=== PATIENT | male | born 1930 | race Caucasian/White ===

== ENCOUNTER 2021-06-01 07:24 | Inpatient (IN) ==
--- NOTE | 2021-06-01 07:47 | Emergency Department Note ---
Impression & Plan Respiratory failure, Hypoxia, Pneumonia ED Provider Note NAME: DIMITRI DAUGHERTY AGE: 89 SEX: M : 1930 ARRIVES VIA: Ambulance INFORMANT: Patient, EMS ED PROVIDER(S): Jesse Mccurdy DO CHIEF COMPLAINT: Shortness of breath HPI: The patient is an 89-year-old male who presented to the emergency department from inpatient rehab for an evaluation of difficulty breathing. The patient has never been to our facility before. He is a former employee of [employer]. He does have a history of pulmonary fibrosis according to his documentation from inpatient rehab. Apparently the patient was transferred to inpatient rehab because of decompensation and myopathy from pneumonia from COVID-19 infection. The patient does have a history of atrial fibrillation and takes oral anticoagulation. He also has a history of an indwelling Ewing. He has a history of stroke in the past. The patient was noted to have low-grade fever as well as hemoptysis this morning. Reported oxygen saturation was very low in the 70% range. The patient self complains of significant shortness of breath. He denies having any chest pain. He states he does have lower extremity swelling but this not new for him. He has had some back pain. He denies having any abdominal pain or vomiting. The patient states his symptoms are significantly improved. He was placed on a nonrebreather prior to arrival. The patient's symptoms were moderate to severe. ROS: See above HPI for pertinent positives & negatives. A total of 10 systems reviewed and were otherwise negative. PAST MEDICAL HISTORY: See Below PAST SURGICAL HISTORY: See Below FAMILY HISTORY: See Below SOCIAL HISTORY: See Below HOME MEDICATIONS: See Below ALLERGIES: See Below VITALS: See Below PHYSICAL EXAMINATION: GENERAL: The patient is awake and looking around the room. He is answering questions appropriately. EYES: The conjunctivae are clear. The pupils are round and reactive. EARS, NOSE, MOUTH AND THROAT: The nose is without any evidence of any deformity. NECK: The neck is nontender and supple. RESPIRATORY: Diminished breath sounds are noted throughout. There was significant tachypnea and conversational dyspnea. CARDIOVASCULAR: Irregular heart sounds were noted to auscultation. A loud murmur was noted. This was a questionable friction rub but given the patient's history likely murmur. GASTROINTESTINAL: The abdomen is soft. Abdomen is nontender. Ewing catheter was in place draining gross hematuria. MUSCULOSKELETAL/EXTREMITIES: There is no evidence of gross deformity full range of motion is noted in the hips and shoulders. SKIN: Skin is warm and dry. Pedal edema was noted bilaterally. NEUROLOGIC: Patient is awake alert and oriented x3. MEDICAL DECISION MAKING: The patient is an 89-year-old male who presented to the emergency department from inpatient rehab for an evaluation of difficulty breathing. The patient was experiencing hemoptysis and difficulty breathing. He was found to be severely hypoxic. Chest x-ray revealed bilateral pulmonary infiltrates. Given his heart size this could be related to infection rather than pulmonary edema. I discussed the patient's laboratory and radiographic studies with him. He was cultured and placed on supplemental oxygen. He was also placed on IV antibiotics. He was reevaluated multiple times. The patient did not show have some CO2 retention. I discussed his condition with the on-call [facility]. They have agreed to evaluate the patient in the emergency department for further management and disposition. Triage Nursing notes reviewed. Prior medical records reviewed Vital Signs: reviewed and remarkable for tachycardia hypoxia and tachypnea. Differential diagnosis: Reactive airway disease, pneumonia, pneumothorax, COPD, CHF, infections, cardiac ischemia, pulmonary embolism, musculoskeletal, gastrointestinal, as well as other pathologies. ER treatment provided: See below Diagnostics interpreted by me: ECG: EKG was obtained in the emergency department. My interpretation is atrial fibrillation at 110 bpm. LVH was suggested by voltage criteria. Nonspecific lateral ST segment abnormalities were noted. No previous tracing was available. Cardiac Monitoring: An order was placed for continuous cardiac monitoring. The monitor shows a rate of 124 bpm with atrial fibrillation rhythm. Laboratory studies: As stated above and show below. Imaging studies: See below Consultation(s): I discussed this case with Birgit who is on-call for the [facility]. They will evaluate the patient in the emergency department. ED COURSE: Procedures: none PDMP:reviewed and no issues Critical Care: I have personally spent greater than 45 minutes of critical care time in the direct management of this patient. This includes bedside care, interpretation of diagnostic studies, and testing, discussion with consultants, patient, and family members, and other required patient management activities. This 45 mi nutes is in excess of all separately billable procedures. Past Med/Surg History Medical History (Updated 06/01/21 @ 14:53 by Elvie Simms PA-C) Aortic stenosis Atrial fibrillation Diagnosed in Jul 2020 - was on Eliquis initially but recently changed to Xarelto Carotid stenosis Coronary artery disease 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 Former smoker Hyperlipidemia Hypertension Indwelling Ewing catheter present Pneumonia due to COVID-19 virus Required intubation 05/18-05/20/21 Pulmonary fibrosis Urinary retention Surgical History History of aortic valve replacement Social History (Updated 06/01/21 @ 11:09 by Elvie Simms PA-C) Smoking Status: Former smoker Cigarettes Per Day: 2 PPD until quit in 1998; Smoking End Date: 1998; Second Hand Exposure: No; Do You Dip or Chew Tobacco: No; Tobacco Cessation Education Requested by Patient: No Hx Alcohol Use: No Hx Substance Use: No Preferred Language: Japanese Communication Ability: Effective Clerical Assistant Required: No Beliefs That Will Affect Care: None marital status: Current Living Situation: Personal Care Facility Current Living Situation Comment: daughter nearby who helps with care needs current occupational status: retired 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 Other Information That Helps Us Care for You: No Feels Safe at Home: Yes Safety Concerns: Feels Safe At This Time Assistive Devices: None Allergies Allergies Allergy/AdvReac Type Severity Reaction Status Date / Time No Known Allergies Allergy Unverified 06/01/21 09:07 Home Meds Home Medications Medication Instructions Recorded Confirmed Milk of Magnesia 2.4 g PO DAILY PRN 06/01/21 06/01/21 Potassium Phosphate Sodium 1 packet PO TID 06/01/21 06/01/21 Phosphate Zinc Sulfate 220mg 220 mg PO DAILY 06/01/21 06/01/21 acetaminophen 650 mg 650 mg PO Q4H PRN 06/01/21 06/01/21 tablet,extended release ascorbic acid (vitamin C) 500 mg 500 mg PO DAILY 06/01/21 06/01/21 tablet aspirin 81 mg capsule 81 mg PO DAILY 06/01/21 06/01/21 atorvastatin 10 mg tablet 10 mg PO HS 06/01/21 06/01/21 bisacodyl 10 mg rectal suppository 10 mg TN DAILY PRN 06/01/21 06/01/21 brimonidine 0.2 % eye drops 1 drp OPB Q12H 06/01/21 06/01/21 cholecalciferol (vitamin D3) 25 25 mcg PO DAILY 06/01/21 06/01/21 mcg (1,000 unit) tablet docusate sodium 100 mg capsule 100 mg PO BID 06/01/21 06/01/21 (Colace) fluticasone furoate 100 1 inh INHALATION DAILY 06/01/21 06/01/21 mcg/actuation blister powder for inhalation fluticasone propionate 50 1 spray INTRANASAL DAILY 06/01/21 06/01/21 mcg/actuation nasal spray,suspension furosemide 20 mg tablet 20 mg PO DAILY 06/01/21 06/01/21 latanoprost 0.005 % eye drops 1 drp OPB PM 06/01/21 06/01/21 lidocaine 5 % topical patch 2 patch TOPICAL QAM 06/01/21 06/01/21 loratadine 10 mg tablet 10 mg PO DAILY 06/01/21 06/01/21 metoprolol tartrate 25 mg tablet 75 mg PO DAILY 06/01/21 06/01/21 omega-3 fatty acids 1,000 mg 1,000 mg PO DAILY 06/01/21 06/01/21 capsule pantoprazole 20 mg tablet,delayed 20 mg PO DAILYBB 06/01/21 06/01/21 release polyethylene glycol 3350 17 17 g PO QDL PRN 06/01/21 06/01/21 gram/dose oral powder (Miralax) rivaroxaban 20 mg tablet 20 mg PO QDD 06/01/21 06/01/21 sacubitril 24 mg-valsartan 26 mg 1 tab PO BID 06/01/21 06/01/21 tablet (Entresto) sennosides 8.6 mg-docusate sodium 1 tab-cap PO QDL PRN 06/01/21 06/01/21 50 mg tablet (Senokot-S) tamsulosin 0.4 mg capsule 0.4 mg PO HS 06/01/21 06/01/21 timolol 0.5 % eye drops 1 drp OPB BID 06/01/21 06/01/21 Results & Data (ED) Vital Signs Vital Signs - 24 hr 06/01/21 07:35 06/01/21 08:00 06/01/21 08:30 Temperature 36.9 C Temperature Source Oral Pulse Rate 120 H 100 H 92 H Pulse Rate [Apical] 79 Pulse Rate from SpO2 Sensor 88 76 81 Respiratory Rate 23 19 27 H Respiratory Effort / Characteristics Spontaneous Labored Respiratory Depth Normal Respiratory Pattern Regular Blood Pressure 115/65 118/78 Blood Pressure [Right Arm] 115/65 Blood Pressure Mean 81 91 Blood Pressure Mean [Right Arm] 81 Pulse Oximetry 90 90 93 Oxygen Delivery Method Non-rebreather Non-rebreather Non-rebreather Oxygen Flow Rate 15 15 15 Sepsis Recent Fever Within 48 Hours No Sepsis New/Unexplained Change in Mental Status No Sepsis Action Taken by Nursing No Action Required 06/01/21 09:00 06/01/21 09:30 06/01/21 10:00 Temperature Temperature Source Pulse Rate 100 H 104 H 91 H Pulse Rate [Apical] Pulse Rate from SpO2 Sensor 106 H 88 82 Respiratory Rate 31 H 30 H 30 H Respiratory Effort / Characteristics Respiratory Depth Respiratory Pattern Blood Pressure 101/50 L Blood Pressure [Right Arm] Blood Pressure Mean 67 Blood Pressure Mean [Right Arm] Pulse Oximetry 94 96 95 Oxygen Delivery Method Non-rebreather Non-rebreather Non-rebreather Oxygen Flow Rate 15 15 15 Sepsis Recent Fever Within 48 Hours Sepsis New/Unexplained Change in Mental Status Sepsis Action Taken by Nursing 06/01/21 10:30 06/01/21 12:02 Temperature Temperature Source Pulse Rate 76 Pulse Rate [Apical] Pulse Rate from SpO2 Sensor 74 Respiratory Rate 20 22 Respiratory Effort / Characteristics Respiratory Depth Respiratory Pattern Blood Pressure 105/61 Blood Pressure [Right Arm] Blood Pressure Mean 75 Blood Pressure Mean [Right Arm] Pulse Oximetry 98 95 Oxygen Delivery Method Non-rebreather Non-rebreather Oxygen Flow Rate 15 15 Sepsis Recent Fever Within 48 Hours Sepsis New/Unexplained Change in Mental Status Sepsis Action Taken by [facility] Medications Current Medication List: was personally reviewed by me Laboratory Data Attestation: I reviewed the patient's lab results. Result diagrams: 06/01/21 07:38 06/01/21 07:38 Lab Results 06/01/21 06/01/21 06/01/21 Range/Units 07:38 07:38 07:38 WBC 10.10 (4.8-10.8) K/uL RBC 3.74 L (4.7-6.1) M/uL Hgb 10.7 L (14.0-18.0) g/dL Hct 31.7 L (42-52) % MCV 84.8 (80-100) fL MCH 28.6 (25-34) pg MCHC 33.8 (32-36) g/dL RDW Std Deviation 43.9 (36.4-46.3) fL RDW Coeff of Ronda 14.3 (11.5-14.5) % Plt Count 293 (130-400) K/uL MPV 9.9 (7.4-10.4) fL Immature Gran % (Auto) 0.4 % Neut % (Auto) 87.3 % Lymph % (Auto) 5.2 % Harris % (Auto) 5.6 % Eos % (Auto) 1.4 % Baso % (Auto) 0.1 % Neut # (Auto) 8.81 H (1.4-6.5) K/uL Lymph # (Auto) 0.53 L (1.2-3.4) K/uL Harris # (Auto) 0.57 (0.11-0.59) K/uL Eos # (Auto) 0.14 (0-0.5) K/uL Baso # (Auto) 0.01 (0-0.2) K/uL Immature Gran # (Auto) 0.04 H (0.00-0.02) K/uL PT 13.4 H (9.0-12.0) Seconds INR 1.4 H (0.9-1.1) APTT 39.6 H (21.0-31.0) Seconds PTT Ratio 1.5 VBG pH (7.36-7.41) VBG pCO2 (38-50) mmHg VBG pO2 mmHg VBG HCO3 mmol/L VBG O2 Saturation % VBG Base Excess mEq/L Barometric Pressure mm/Hg Sodium 131 L (136-145) mmol/L Potassium 3.8 (3.5-5.1) mmol/L Chloride 98 (98-107) mmol/L Carbon Dioxide 26 (21-32) mmol/L Anion Gap 7.0 (3-11) BUN 19 H (7-18) mg/dl Creatinine 0.76 (0.6-1.4) mg/dl Est Cr Clr Drug Dosing 59.8 ml/min Est GFR ( Amer) 93.8 ml/min Est GFR (Non-Af Amer) 80.9 ml/min BUN/Creatinine Ratio 25.4 H (10-20) Glucose 121 H (70-99) mg/dl Lactate (0.4-2.0) mmol/L Calcium 9.5 (8.5-10.1) mg/dl Magnesium 1.9 (1.8-2.4) mg/dl Ferritin (8-388) ng/ml Total Bilirubin 1.1 H (0.2-1) mg/dl AST 20 (15-37) U/L ALT 18 (12-78) U/L Alkaline Phosphatase 90 (45-117) U/L Troponin I < 0.015 (0-0.045) ng/ml C-Reactive Protein (0-0.29) mg/dl NT-Pro-B Natriuret Pep 1713 (0-1800) pg/ml Total Protein 6.4 (6.4-8.2) gm/dl Albumin 2.0 L (3.4-5.0) gm/dl Globulin 4.4 H (2.5-4.0) gm/dl Albumin/Globulin Ratio 0.5 L (0.9-2) Procalcitonin (0-0.5) ng/ml Urine Color Urine Appearance (Clear) Urine pH (4.5-7.5) Ur Specific [place] (1.000-1.030) Urine Protein (Negative) Urine Glucose (UA) (Negative) Urine Ketones (Negative) Urine Blood (Negative) Urine Nitrite (Negative) Urine Bilirubin (Negative) Urine Urobilinogen (Negative) Ur Leukocyte Esterase (Negative) Urine RBC (0-4) /hpf Urine WBC (0-5) /hpf Ur Epithelial Cells (0-5) /lpf Urine Bacteria (Negative) COVID-19 Eval Order SARS-CoV-2 (PCR) (Negative) 06/01/21 06/01/21 06/01/21 Range/Units 07:38 07:38 07:57 WBC (4.8-10.8) K/uL RBC (4.7-6.1) M/uL Hgb (14.0-18.0) g/dL Hct (42-52) % MCV (80-100) fL MCH (25-34) pg MCHC (32-36) g/dL RDW Std Deviation (36.4-46.3) fL RDW Coeff of Ronda (11.5-14.5) % Plt Count (130-400) K/uL MPV (7.4-10.4) fL Immature Gran % (Auto) % Neut % (Auto) % Lymph % (Auto) % Harris % (Auto) % Eos % (Auto) % Baso % (Auto) % Neut # (Auto) (1.4-6.5) K/uL Lymph # (Auto) (1.2-3.4) K/uL Harris # (Auto) (0.11-0.59) K/uL Eos # (Auto) (0-0.5) K/uL Baso # (Auto) (0-0.2) K/uL Immature Gran # (Auto) (0.00-0.02) K/uL PT (9.0-12.0) Seconds INR (0.9-1.1) APTT (21.0-31.0) Seconds PTT Ratio VBG pH (7.36-7.41) VBG pCO2 (38-50) mmHg VBG pO2 mmHg VBG HCO3 mmol/L VBG O2 Saturation % VBG Base Excess mEq/L Barometric Pressure mm/Hg Sodium (136-145) mmol/L Potassium (3.5-5.1) mmol/L Chloride (98-107) mmol/L Carbon Dioxide (21-32) mmol/L Anion Gap (3-11) BUN (7-18) mg/dl Creatinine (0.6-1.4) mg/dl Est Cr Clr Drug Dosing ml/min Est GFR ( Amer) ml/min Est GFR (Non-Af Amer) ml/min BUN/Creatinine Ratio (10-20) Glucose (70-99) mg/dl Lactate (0.4-2.0) mmol/L Calcium (8.5-10.1) mg/dl Magnesium (1.8-2.4) mg/dl Ferritin 934.7 H (8-388) ng/ml Total Bilirubin (0.2-1) mg/dl AST (15-37) U/L ALT (12-78) U/L Alkaline Phosphatase (45-117) U/L Troponin I (0-0.045) ng/ml C-Reactive Protein 14.30 H (0-0.29) mg/dl NT-Pro-B Natriuret Pep (0-1800) pg/ml Total Protein (6.4-8.2) gm/dl Albumin (3.4-5.0) gm/dl Globulin (2.5-4.0) gm/dl Albumin/Globulin Ratio (0.9-2) Procalcitonin 0.08 (0-0.5) ng/ml Urine Color Urine Appearance (Clear) Urine pH (4.5-7.5) Ur Specific [place] (1.000-1.030) Urine Protein (Negative) Urine Glucose (UA) (Negative) Urine Ketones (Negative) Urine Blood (Negative) Urine Nitrite (Negative) Urine Bilirubin (Negative) Urine Urobilinogen (Negative) Ur Leukocyte Esterase (Negative) Urine RBC (0-4) /hpf Urine WBC (0-5) /hpf Ur Epithelial Cells (0-5) /lpf Urine Bacteria (Negative) COVID-19 Eval Order Covid19 at [facility] SARS-CoV-2 (PCR) (Negative) 06/01/21 06/01/21 06/01/21 Range/Units 07:57 08:17 08:17 WBC (4.8-10.8) K/uL RBC (4.7-6.1) M/uL Hgb (14.0-18.0) g/dL Hct (42-52) % MCV (80-100) fL MCH (25-34) pg MCHC (32-36) g/dL RDW Std Deviation (36.4-46.3) fL RDW Coeff of Ronda (11.5-14.5) % Plt Count (130-400) K/uL MPV (7.4-10.4) fL Immature Gran % (Auto) % Neut % (Auto) % Lymph % (Auto) % Harris % (Auto) % Eos % (Auto) % Baso % (Auto) % Neut # (Auto) (1.4-6.5) K/uL Lymph # (Auto) (1.2-3.4) K/uL Harris # (Auto) (0.11-0.59) K/uL Eos # (Auto) (0-0.5) K/uL Baso # (Auto) (0-0.2) K/uL Immature Gran # (Auto) (0.00-0.02) K/uL PT (9.0-12.0) Seconds INR (0.9-1.1) APTT (21.0-31.0) Seconds PTT Ratio VBG pH 7.45 H (7.36-7.41) VBG pCO2 37 L (38-50) mmHg VBG pO2 30 mmHg VBG HCO3 25 mmol/L VBG O2 Saturation < 60.0 % VBG Base Excess 1.6 mEq/L Barometric Pressure 731.3 mm/Hg Sodium (136-145) mmol/L Potassium (3.5-5.1) mmol/L Chloride (98-107) mmol/L Carbon Dioxide (21-32) mmol/L Anion Gap (3-11) BUN (7-18) mg/dl Creatinine (0.6-1.4) mg/dl Est Cr Clr Drug Dosing ml/min Est GFR ( Amer) ml/min Est GFR (Non-Af Amer) ml/min BUN/Creatinine Ratio (10-20) Glucose (70-99) mg/dl Lactate 1.5 (0.4-2.0) mmol/L Calcium (8.5-10.1) mg/dl Magnesium (1.8-2.4) mg/dl Ferritin (8-388) ng/ml Total Bilirubin (0.2-1) mg/dl AST (15-37) U/L ALT (12-78) U/L Alkaline Phosphatase (45-117) U/L Troponin I (0-0.045) ng/ml C-Reactive Protein (0-0.29) mg/dl NT-Pro-B Natriuret Pep (0-1800) pg/ml Total Protein (6.4-8.2) gm/dl Albumin (3.4-5.0) gm/dl Globulin (2.5-4.0) gm/dl Albumin/Globulin Ratio (0.9-2) Procalcitonin (0-0.5) ng/ml Urine Color Urine Appearance (Clear) Urine pH (4.5-7.5) Ur Specific [place] (1.000-1.030) Urine Protein (Negative) Urine Glucose (UA) (Negative) Urine Ketones (Negative) Urine Blood (Negative) Urine Nitrite (Negative) Urine Bilirubin (Negative) Urine Urobilinogen (Negative) Ur Leukocyte Esterase (Negative) Urine RBC (0-4) /hpf Urine WBC (0-5) /hpf Ur Epithelial Cells (0-5) /lpf Urine Bacteria (Negative) COVID-19 Eval Order SARS-CoV-2 (PCR) POSITIVE A* (Negative) 06/01/21 Range/Units 09:36 WBC (4.8-10.8) K/uL RBC (4.7-6.1) M/uL Hgb (14.0-18.0) g/dL Hct (42-52) % MCV (80-100) fL MCH (25-34) pg MCHC (32-36) g/dL RDW Std Deviation (36.4-46.3) fL RDW Coeff of Ronda (11.5-14.5) % Plt Count (130-400) K/uL MPV (7.4-10.4) fL Immature Gran % (Auto) % Neut % (Auto) % Lymph % (Auto) % Harris % (Auto) % Eos % (Auto) % Baso % (Auto) % Neut # (Auto) (1.4-6.5) K/uL Lymph # (Auto) (1.2-3.4) K/uL Harris # (Auto) (0.11-0.59) K/uL Eos # (Auto) (0-0.5) K/uL Baso # (Auto) (0-0.2) K/uL Immature Gran # (Auto) (0.00-0.02) K/uL PT (9.0-12.0) Seconds INR (0.9-1.1) APTT (21.0-31.0) Seconds PTT Ratio VBG pH (7.36-7.41) VBG pCO2 (38-50) mmHg VBG pO2 mmHg VBG HCO3 mmol/L VBG O2 Saturation % VBG Base Excess mEq/L Barometric Pressure mm/Hg Sodium (136-145) mmol/L Potassium (3.5-5.1) mmol/L Chloride (98-107) mmol/L Carbon Dioxide (21-32) mmol/L Anion Gap (3-11) BUN (7-18) mg/dl Creatinine (0.6-1.4) mg/dl Est Cr Clr Drug Dosing ml/min Est GFR ( Amer) ml/min Est GFR (Non-Af Amer) ml/min BUN/Creatinine Ratio (10-20) Glucose (70-99) mg/dl Lactate (0.4-2.0) mmol/L Calcium (8.5-10.1) mg/dl Magnesium (1.8-2.4) mg/dl Ferritin (8-388) ng/ml Total Bilirubin (0.2-1) mg/dl AST (15-37) U/L ALT (12-78) U/L Alkaline Phosphatase (45-117) U/L Troponin I (0-0.045) ng/ml C-Reactive Protein (0-0.29) mg/dl NT-Pro-B Natriuret Pep (0-1800) pg/ml Total Protein (6.4-8.2) gm/dl Albumin (3.4-5.0) gm/dl Globulin (2.5-4.0) gm/dl Albumin/Globulin Ratio (0.9-2) Procalcitonin (0-0.5) ng/ml Urine Color Red Urine Appearance Cloudy A (Clear) Urine pH 5.5 (4.5-7.5) Ur Specific [place] 1.020 (1.000-1.030) Urine Protein 3+ H (Negative) Urine Glucose (UA) Negative (Negative) Urine Ketones Negative (Negative) Urine Blood 3+ H (Negative) Urine Nitrite Negative (Negative) Urine Bilirubin 1+ H (Negative) Urine Urobilinogen Negative (Negative) Ur Leukocyte Esterase Negative (Negative) Urine RBC >30 H (0-4) /hpf Urine WBC 10-30 H (0-5) /hpf Ur Epithelial Cells 5-10 H (0-5) /lpf Urine Bacteria 1+ H (Negative) COVID-19 Eval Order SARS-CoV-2 (PCR) (Negative) Administered Medications Atorvastatin Calcium (Atorvastatin 10 Mg Tab) 10 mg PO HS JUDY Stop: 07/01/21 20:59 Last Admin: 06/01/21 20:12 Dose: 10 mg Documented by: [id number] Brimonidine Tartrate (Brimonidine Tartrate 0.2% 5ml) 1 drops OPB Q12H JUDY Stop: 07/01/21 20:59 Last Admin: 06/01/21 20:14 Dose: 1 drops Documented by: [id number] Dexamethasone 6 mg/ Syringe 1.5 mls @ 1 mls/min IV DAILY JUDY Stop: 07/01/21 15:29 Last Admin: 06/01/21 16:20 Dose: 1 mls/min Documented by: [id number] Latanoprost (Latanoprost 0.005% Op Soln 2.5 Ml Btl) 1 drops OPB PM JUDY Stop: 07/01/21 20:59 Last Admin: 06/01/21 20:14 Dose: 1 drops Documented by: [id number] Rivaroxaban (Rivaroxaban 20 Mg Tab) 20 mg PO QDD JUDY Stop: 07/01/21 17:59 Last Admin: 06/01/21 20:12 Dose: 20 mg Documented by: [id number] Sacubitril/Valsartan (Sacubitril-Valsartan 24-26 Mg Tab) 1 tab PO Q12H JUDY Stop: 07/01/21 20:59 Last Admin: 06/01/21 20:14 Dose: 1 tab Documented by: [id number] Tamsulosin HCl (Tamsulosin Hcl 0.4 Mg Cap) 0.4 mg PO HS JUDY Stop: 07/01/21 20:59 Last Admin: 06/01/21 20:12 Dose: 0.4 mg Documented by: [id number] Timolol Maleate (Timolol Maleate 0.5% Op Soln 5 Ml Btl) 1 drops OPB Q12H JUDY Stop: 07/01/21 20:59 Last Admin: 06/01/21 20:13 Dose: 1 drops Documented by: [id number] Discontinued Medications Furosemide (Furosemide 40 Mg/4 Ml Vial) 40 mg IV NOW STA Stop: 06/01/21 12:50 Last Admin: 06/01/21 13:10 Dose: 40 mg Documented by: [id number] Piperacillin Sod/Tazobactam Sod (Zosyn) 4.5 gm in 120 mls @ 240 mls/hr IV NOW ONE Stop: 06/01/21 09:19 Last Infusion: 06/01/21 09:53 Dose: 0 mls/hr Documented by: [id number] Admin: 06/01/21 09:11 Dose: 240 mls/hr Documented by: [id number] Vancomycin HCl 1,750 mg/ (Sodium Chloride) 535 mls @ 200 mls/hr IV NOW ONE Stop: 06/01/21 11:31 Last Infusion: 06/01/21 13:51 Dose: 0 mls/hr Documented by: [id number] Admin: 06/01/21 09:51 Dose: 200 mls/hr Documented by: [id number] Influenza Virus Vaccine (Influenza Vaccine High Dose Pf 65+ 0.7 Ml Syr) 0.7 ml IM .ONCE ONE Stop: 06/01/21 15:01 Last Admin: 06/01/21 14:52 Dose: Not Given Documented by: [id number] Ioversol (Optiray 320 125ml) 110 ml IV ONCE ONE Stop: 06/01/21 11:20 Last Admin: 06/01/21 11:19 Dose: 110 ml Documented by: [id number] Imaging Data Radiologist's Impression: Chest X-Ray 06/01/21 07:28 SINGLE VIEW CHEST CLINICAL HISTORY: Sepsis. FINDINGS: 2 AP, portable, upright chest radiographs are obtained. No prior studies are available for comparison at the time of dictation. The examination is degraded by portable technique and patient rotation. The patient is status post midline sternotomy. The heart is enlarged noting atherosclerotic calcification of the thoracic aorta. There are diffuse bilateral airspace opacities. Small pleural effusions are suspected. No pneumothorax is seen. The skeletal structures are osteopenic. The bony thorax is grossly intact. Surgical clips project over the right axilla. IMPRESSION: 1. There are diffuse bilateral airspace opacities. Differential considerations include pulmonary edema and/or multifocal pneumonia. Clinical correlation will be required and radiographic follow-up to resolution is recommended. 2. Cardiomegaly. ACT 112: Negative or not required by law. Electronically signed by: Gideon Moreno M.D. 06/01/2021 8:42 AM Chest CTA 06/01/21 10:44 CT ANGIOGRAM OF THE CHEST CLINICAL HISTORY: Dyspnea. Covid. COMPARISON STUDY: Chest x-ray dated 06/01/2021. TECHNIQUE: Following the IV administration of 110 cc of Optiray 320, CT angiogram of the chest was performed from the upper abdomen to the thoracic inlet utilizing the pulmonary embolus protocol. Images are reviewed in the axial, sagittal, and coronal planes. 3-D MIPS images are created and assessed. IV contrast was administered without complication. A dose lowering technique was utilized adhering to the principles of ALARA. The examination is significantly compromised by motion artifact. CT DOSE: 543.43 mGycm FINDINGS: Thyroid: Imaged portions of the thyroid gland are normal in size and attenuation . Thoracic aorta: There is advanced atherosclerotic calcification of the thoracic aorta, which is normal in caliber and demonstrates standard 3-vessel arch anatomy. No dissection is seen. Pulmonary vasculature: The pulmonary trunk is dilated, measuring 3.5 cm in diameter. This suggests pulmonary artery hypertension. There are no filling defects identified in main, lobar, or proximal segmental pulmonary branches to suggest pulmonary embolus. Evaluation of the peripheral branches is significantly degraded by motion artifact. Heart: The patient is status post midline sternotomy. The heart is enlarged and without pericardial effusion. The coronary arteries and mitral annulus are densely calcified. Lungs and pleural spaces: Evaluation of the lung parenchyma is significantly degraded by motion artifact. Multifocal airspace consolidation is seen throughout both lungs. The trachea and central airways are clear. There are trace pleural effusions. Mediastinum: There are enlarged mediastinal lymph nodes. Right peritracheal nodes measure up to 19 mm in short axis. AP window nodes measure up to 11 mm in short axis. Ele: There is bilateral hilar lymphadenopathy. Hilar lymph nodes measure up to 14 mm in short axis. Axillae: There is no axillary lymphadenopathy. Upper abdomen: A hiatal hernia is noted. Partially visualized upper abdominal viscera is within normal limits. Skeletal structures: The skeletal structures are osteopenic. Degenerative change and kyphoscoliosis is noted in the thoracic spine. There is a superior end plate compression deformity of T4. No lytic or blastic bony lesions are seen. Advanced arthritic change is seen in the shoulders. There are healed left-sided rib fractures. IMPRESSION: 1. Motion compromised examination. 2. There is no evidence of central pulmonary embolus in the main, lobar, or proximal segmental pulmonary arteries. 3. Multifocal airspace consolidation is consistent with the reported history of a viral pneumonia. Radiographic follow-up to resolution is recommended. 4. Cardiomegaly and trace pleural effusions. 5. Enlarged mediastinal and hilar lymph nodes are likely reactive. 6. Additional findings as above. ACT 112: Negative or not required by law. Electronically signed by: Gideon Moreno M.D. 06/01/2021 11:46 AM Discharge Plan Visit Data Chief Complaint: Shortness of Breath/Dyspnea Stated Complaint: SOB hypoxia ED Provider: Kaz,Jesse R Discharge Problem: Respiratory failure, Hypoxia, Pneumonia Patient Disposition: Admitted As Inpatient Discharge Instructions Interventions: ED Discharge Assessment Last Done: 06/01/21 13:37 Discharge Problem: Respiratory failure Qualifiers: Chronicity: acute Respiratory failure complication: hypoxia Qualified Code(s): J96.01 - Acute respiratory failure with hypoxia Pneumonia Qualifiers: Pneumonia type: due to unspecified organism Laterality: bilateral Lung loc ation: lower lobe of lung Qualified Code(s): J18.9 - Pneumonia, unspecified organism
[2021-06-01 07:53] LABS: Basophils # (auto) 0.01 K/uL (0-0.2); Basophils % (auto) 0.1 %; Eosinophils # (auto) 0.14 K/uL (0-0.5); Eosinophils % (auto) 1.4 %; Hematocrit (blood only) 31.7 % (42-52); Hemoglobin 10.7 g/dL (14.0-18.0); Immature Granulocytes # (auto) 0.04 K/uL (0.00-0.02); Immature Granulocytes % (auto) 0.4 %; Lymphocytes # (auto) 0.53 K/uL (1.2-3.4); Lymphocytes % (auto) 5.2 %; Mean Corpuscular Hemoglobin 28.6 pg (25-34); Mean Corpuscular Hgb Conc 33.8 g/dL (32-36); Mean Corpuscular Volume 84.8 fL (80-100); Mean Platelet Volume 9.9 fL (7.4-10.4); Monocytes # (auto) 0.57 K/uL (0.11-0.59); Monocytes % (auto) 5.6 %; Neutrophils # (auto) 8.81 K/uL (1.4-6.5); Neutrophils % (auto) 87.3 %; Platelet Count 293 K/uL (130-400); RDW Coefficient of Variation 14.3 % (11.5-14.5); RDW Standard Deviation 43.9 fL (36.4-46.3); Red Blood Count 3.74 M/uL (4.7-6.1)
[2021-06-01 08:02] LABS: INR 1.4 (0.9-1.1); Partial Thromboplastin Ratio 1.5; Partial Thromboplastin Time 39.6 Seconds (21.0-31.0); Prothrombin Time 13.4 Seconds (9.0-12.0)
[2021-06-01 08:12] LABS: Alanine Aminotransferase 18 U/L (12-78); Aspartate Aminotransferase 20 U/L (15-37); BUN Creatinine Ratio 25.4 (10-20); Blood Urea Nitrogen 19 mg/dl (7-18); Calcium 9.5 mg/dl (8.5-10.1); Carbon Dioxide 26 mmol/L (21-32); Chloride 98 mmol/L (98-107); Creatinine Clr Calc Pharmacy 59.8 ml/min; Est GFR (African American) 93.8 ml/min; Est GFR (Non-African American) 80.9 ml/min; Glucose 121 mg/dl (70-99); Magnesium 1.9 mg/dl (1.8-2.4); Potassium 3.8 mmol/L (3.5-5.1); Sodium 131 mmol/L (136-145)
[2021-06-01 08:17] LABS: Albumin Globulin Ratio 0.5 (0.9-2); Alkaline Phosphatase 90 U/L (45-117); Bilirubin,Total 1.1 mg/dl (0.2-1); Globulin 4.4 gm/dl (2.5-4.0); NT Pro B Type Natriuretic Pept 1713 pg/ml (0-1800); Total Protein 6.4 gm/dl (6.4-8.2); Troponin I < 0.015 ng/ml (0-0.045)
[2021-06-01 08:32] LABS: Base Excess VBG 1.6 mEq/L; HCO3 VBG 25 mmol/L; PCO2 VBG 37 mmHg (38-50); PO2 VBG 30 mmHg; pH VBG 7.45 (7.36-7.41)
[2021-06-01 08:33] LABS: Oxygen Saturation VBG < 60.0 %
--- NOTE | 2021-06-01 08:43 | XRay Report ---
SINGLE VIEW CHEST CLINICAL HISTORY: Sepsis. FINDINGS: 2 AP, portable, upright chest radiographs are obtained. No prior studies are available for comparison at the time of dictation. The examination is degraded by portable technique and patient ro tation. The patient is status post midline sternotomy. The heart is enlarged noting atherosclerotic calcification of the thoracic aorta. There are diffuse bilateral airspace opacities. Small pleural ef fusions are suspected. No pneumothorax is seen. The skeletal structures are osteopenic. The bony thor ax is grossly intact. Surgical clips project over the right axilla. IMPRESSION: 1. There are diffuse bilateral airspace opacities. Differential considerations include pulmonary jose eduardo a and/or multifocal pneumonia. Clinical correlation will be required and radiographic follow-up to re solution is recommended. 2. Cardiomegaly. ACT 112: Negative or not required by law. Electronically signed by: Gideon Moreno M.D. 06/01/2021 8:42 AM
[2021-06-01] MEDS ORDERED: PIPERACILLIN/TAZOBACTAM 4.5 GM/120 ML BAG IV ONE (08:50)
[2021-06-01] MEDS ORDERED: PIPERACILL/TAZOBAC CONSULT ACTIVE PRN (08:50)
[2021-06-01] MEDS ORDERED: VANCOMYCIN CONSULT ACTIVE PRN (08:51)
[2021-06-01] MEDS ORDERED: VANCOMYCIN HCL 1,750 MG in SODIUM CHLORIDE 0.9% 500 ML IV ONE (08:51)
[2021-06-01 10:17] LABS: Appearance Urine Cloudy (Clear); Bilirubin Urine 1+ (Negative); Blood Urine 3+ (Negative); Color Urine Red; Glucose Urine UA Negative (Negative); Ketones Urine Negative (Negative); Leukocyte Esterase Urine Negative (Negative); Nitrite Urine Negative (Negative); Protein Urine 3+ (Negative); Urobilinogen Urine Negative (Negative); pH Urine 5.5 (4.5-7.5)
[2021-06-01 10:20] LABS: Bacteria Urine 1+ (Negative); RBC Urine >30 /hpf (0-4)
--- NOTE | 2021-06-01 10:38 | History & Physical Report ---
Date of Service June 01, 2021 Assessment & Plan (1) Respiratory failure: (2) Hypoxia: (3) Pneumonia due to COVID-19 virus: (4) Coronary artery disease: (5) Atrial fibrillation: (6) Hypertension: (7) Hyperlipidemia: (8) Former smoker: Plan: Pt with evidence of post-viral COVID pneumonia but will need to rule out alternate cause of increased O2 requirement such as another viral infection such as influenza or RSV as well as possible PE. - Check CTA Chest - Biofire respiratory panel - Admit to PCU - Continue respiratory support with oxygen, possible BIPAP - Broad-spectrum antibiotics started in the ED - procalcitonin negative, normal WBCs so will discontinue for now. Cultures are pending. - Check inflammatory markers - Start IV dexamethasone - Reviewed case with pulmonology - no additional interventions recommended at this time Extensive discussion with pt's daughter, Yarelis, regarding goals of care. I also spoke with pt's , Leigh, and granddaughter Yecenia. Discussed poor prognosis with pt's current condition and co-morbidities. We extensively discussed the possibility of intubation, including the likely scenario of pt requiring prolonged mechanical ventilation if he would need to be reintubated and potential need for a trach in that situation. The family discussed amongst themselves and are all in agreement that pt would not want a prolonged intubation. Will continue respiratory support other than intubation. Code status DNR/DNI. Roge Simms PA-C History of Present Illness Chief Complaint: coughing up blood, low oxygen sats Primary Care Provider: [facility] This is an 89 y/o male with recent admission for respiratory failure and COVID and a PMH of aortic stenosis, prior AVR, CAD, HTN, atrial fibrillation, dyslipidemia, former smoker, ? pulomonary fibrosis, ?recent CVA while intubated who was brought to the ED via EMS from [facility] rehab with new hemoptysis and worsening hypoxia. Of note, pt was vaccinated for COVID with Pfizer in Sep. History obtained from pt, his daughter (a nurse), and available records. Pt was diagnosed with COVID week of 05/07 - initially just fatigued but progressively worsened at home. Admitted to [place] 05/11, sent home 05/12. On 05/13, sats at home dropped to mid-80s so returned to hospital and admitted again. After ad mission, he was on increasing amounts of oxygen and then was ultimately intubated and transferred to the ICU on 05/18. He was treated for the COVID pneumonia with remdesivir, dexamethasone, and baricitinib. He was also on empiric azithromycin and cefepime. He did have some issues with ICU delirium. On 05/20 he was extubated and subsequently transferred to the floor. Initially, he seemed to be improving, but on 05/25 when he was supposed to be discharge to rehab he developed increased confusion, leukocytosis, and increased O2 requirement. He had blood/urine/sputum cultures collected, which were apparently all negative. He was started on empiric Zosyn. His family noted that he seemed to be getting weaker after transfer out of ICU, not stronger, so transfer to rehab was ultimately recommended. He was discharged to [facility] on 05/28 in the evening - on 3 liters of O2, antibiotics changed to Augment at discharge. Apparently, he seemed to do okay for the first two days at rehab, but yesterday, his family noticed that he seemed more tired and flat then he had been. He told them that "I'm not feeling good" but could not localize symptoms. His O2 requirements have been stable until today. Since last night, the staff at [facility] reported intermittent hemoptysis, especially with using incentive spirometer. He also developed a fever last night of 100.9F. This morning, he was noted to be markedly hypoxic so EMS was called. In the ED, he has required 15 L of O2 via NRB to maintain sats in mid to low 90s. He reports feeling better than upon arrival but notes that he gets short of breath with speaking more than 2-3 words. Allergies Allergy/AdvReac Type Severity Reaction Status Date / Time No Known Allergies Allergy Unverified 06/01/21 09:07 Home Medications Medication Instructions Recorded Confirmed Type Milk of Magnesia 2.4 g PO DAILY PRN 06/01/21 06/01/21 History Potassium Phosphate Sodium 1 packet PO TID 06/01/21 06/01/21 History Phosphate Zinc Sulfate 220mg 220 mg PO DAILY 06/01/21 06/01/21 History acetaminophen 650 mg 650 mg PO Q4H PRN 06/01/21 06/01/21 History tablet,extended release ascorbic acid (vitamin C) 500 mg 500 mg PO DAILY 06/01/21 06/01/21 History tablet aspirin 81 mg capsule 81 mg PO DAILY 06/01/21 06/01/21 History atorvastatin 10 mg tablet 10 mg PO HS 06/01/21 06/01/21 History bisacodyl 10 mg rectal suppository 10 mg IA DAILY PRN 06/01/21 06/01/21 History brimonidine 0.2 % eye drops 1 drp OPB Q12H 06/01/21 06/01/21 History cholecalciferol (vitamin D3) 25 25 mcg PO DAILY 06/01/21 06/01/21 History mcg (1,000 unit) tablet docusate sodium 100 mg capsule 100 mg PO BID 06/01/21 06/01/21 History (Colace) fluticasone furoate 100 1 inh INHALATION DAILY 06/01/21 06/01/21 History mcg/actuation blister powder for inhalation fluticasone propionate 50 1 spray INTRANASAL DAILY 06/01/21 06/01/21 History mcg/actuation nasal spray,suspension furosemide 20 mg tablet 20 mg PO DAILY 06/01/21 06/01/21 History latanoprost 0.005 % eye drops 1 drp OPB PM 06/01/21 06/01/21 History lidocaine 5 % topical patch 2 patch TOPICAL QAM 06/01/21 06/01/21 History loratadine 10 mg tablet 10 mg PO DAILY 06/01/21 06/01/21 History metoprolol tartrate 25 mg tablet 75 mg PO DAILY 06/01/21 06/01/21 History omega-3 fatty acids 1,000 mg 1,000 mg PO DAILY 06/01/21 06/01/21 History capsule pantoprazole 20 mg tablet,delayed 20 mg PO DAILYBB 06/01/21 06/01/21 History release polyethylene glycol 3350 17 17 g PO QDL PRN 06/01/21 06/01/21 History gram/dose oral powder (Miralax) rivaroxaban 20 mg tablet 20 mg PO QDD 06/01/21 06/01/21 History sacubitril 24 mg-valsartan 26 mg 1 tab PO BID 06/01/21 06/01/21 History tablet (Entresto) sennosides 8.6 mg-docusate sodium 1 tab-cap PO QDL PRN 06/01/21 06/01/21 History 50 mg tablet (Senokot-S) tamsulosin 0.4 mg capsule 0.4 mg PO HS 06/01/21 06/01/21 History timolol 0.5 % eye drops 1 drp OPB BID 06/01/21 06/01/21 History Past Med/Surg History Medical History (Updated 06/01/21 @ 14:53 by Elvie Simms PA-C) Aortic stenosis Atrial fibrillation Diagnosed in Jul 2020 - was on Eliquis initially but recently changed to Xarelto Carotid stenosis Coronary artery disease 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 Former smoker Hyperlipidemia Hypertension Indwelling Ewing catheter present Pneumonia due to COVID-19 virus Required intubation 05/18-05/20/21 Pulmonary fibrosis Urinary retention Surgical History History of aortic valve replacement Social History (Updated 06/01/21 @ 11:09 by Elvie Simms PA-C) Smoking Status: Former smoker Cigarettes Per Day: 2 PPD until quit in 1998; Smoking End Date: 1998; Second Hand Exposure: No; Do You Dip or Chew Tobacco: No; Tobacco Cessation Education Requested by Patient: No Hx Alcohol Use: No Hx Substance Use: No Preferred Language: Tunisian Communication Ability: Effective Clerk Typist Required: No Beliefs That Will Affect Care: None marital status: Current Living Situation: Personal Care Facility Current Living Situation Comment: daughter nearby who helps with care needs current occupational status: retired 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 Other Information That Helps Us Care for You: No Feels Safe at Home: Yes Safety Concerns: Feels Safe At This Time Assistive Devices: None Review of Systems Review of Systems: All systems reviewed & are unremarkable except as noted in HPI & below Constitutional: + fever, + fatigue, + weakness and + anorexia Respiratory: + cough, + dyspnea and + hemoptysis Cardiovascular: no chest pain, no palpitations and no lightheadedness Genitourinary: + difficulty urinating and + hematuria Physical Exam Constitutional: + ill appearing and + obese; no acute distress Eyes: + anicteric sclerae Neck: trachea midline Respiratory: + labored breathing (with conversational dyspnea), + cough and + tachypneic Auscultation: + diminished lung sounds and + crackles (at bases); no wheezes Cardiovascular: Rate/Rhythm: + tachycardic and + irregularly irregular Heart Sounds: + murmur Vessels: radial pulses present Extremities: + pedal edema; no calf tenderness Gastrointestinal (Abdomen): Inspection/Auscultation: normal bowel sounds; abdomen not distended Percussion/Palpation: abdomen soft; abdomen nontender Musculoskeletal: Head/Neck/Chest: normocephalic, head atraumatic and neck supple Skin: no jaundice Neurologic: moves all extremities and awake; not confused Psychiatric: Orientation: oriented x 3 Genitourinary: Ewing catheter in place with gross hematuria Results & Data Results & Data ([facility]) Vital Signs (Past 12 Hours) Vital Signs Temp Pulse Pulse Resp BP BP Pulse Ox 06/01/21 10:00 91 H 30 H 95 06/01/21 09:30 104 H 30 H 101/50 L 96 06/01/21 09:00 100 H 31 H 94 06/01/21 08:30 92 H 27 H 118/78 93 06/01/21 08:00 100 H 19 90 06/01/21 07:35 36.9 C 120 H 79 23 115/65 115/65 90 Laboratory Results Laboratory Results - last 24 hr 06/01/21 06/01/21 06/01/21 07:38 07:38 07:38 WBC 10.10 RBC 3.74 L Hgb 10.7 L Hct 31.7 L MCV 84.8 MCH 28.6 MCHC 33.8 RDW Std Deviation 43.9 RDW Coeff of Ronda 14.3 Plt Count 293 MPV 9.9 Immature Gran % (Auto) 0.4 Neut % (Auto) 87.3 Lymph % (Auto) 5.2 Randall % (Auto) 5.6 Eos % (Auto) 1.4 Baso % (Auto) 0.1 Neut # (Auto) 8.81 H Lymph # (Auto) 0.53 L Randall # (Auto) 0.57 Eos # (Auto) 0.14 Baso # (Auto) 0.01 Immature Gran # (Auto) 0.04 H PT 13.4 H INR 1.4 H APTT 39.6 H PTT Ratio 1.5 VBG pH VBG pCO2 VBG pO2 VBG HCO3 VBG O2 Saturation VBG Base Excess Barometric Pressure Sodium 131 L Potassium 3.8 Chloride 98 Carbon Dioxide 26 Anion Gap 7.0 BUN 19 H Creatinine 0.76 Est Cr Clr Drug Dosing 59.8 Est GFR ( Amer) 93.8 Est GFR (Non-Af Amer) 80.9 BUN/Creatinine Ratio 25.4 H Glucose 121 H Lactate Calcium 9.5 Magnesium 1.9 Total Bilirubin 1.1 H AST 20 ALT 18 Alkaline Phosphatase 90 Troponin I < 0.015 NT-Pro-B Natriuret Pep 1713 Total Protein 6.4 Albumin 2.0 L Globulin 4.4 H Albumin/Globulin Ratio 0.5 L Procalcitonin Urine Color Urine Appearance Urine pH Ur Specific Hall[place]ord Urine Protein Urine Glucose (UA) Urine Ketones Urine Blood Urine Nitrite Urine Bilirubin Urine Urobilinogen Ur Leukocyte Esterase Urine RBC Urine WBC Ur Epithelial Cells Urine Bacteria COVID-19 Eval Order SARS-CoV-2 (PCR) 06/01/21 06/01/21 06/01/21 07:38 07:57 07:57 WBC RBC Hgb Hct MCV MCH MCHC RDW Std Deviation RDW Coeff of Ronda Plt Count MPV Immature Gran % (Auto) Neut % (Auto) Lymph % (Auto) Randall % (Auto) Eos % (Auto) Baso % (Auto) Neut # (Auto) Lymph # (Auto) Randall # (Auto) Eos # (Auto) Baso # (Auto) Immature Gran # (Auto) PT INR APTT PTT Ratio VBG pH VBG pCO2 VBG pO2 VBG HCO3 VBG O2 Saturation VBG Base Excess Barometric Pressure Sodium Potassium Chloride Carbon Dioxide Anion Gap BUN Creatinine Est Cr Clr Drug Dosing Est GFR ( Amer) Est GFR (Non-Af Amer) BUN/Creatinine Ratio Glucose Lactate Calcium Magnesium Total Bilirubin AST ALT Alkaline Phosphatase Troponin I NT-Pro-B Natriuret Pep Total Protein Albumin Globulin Albumin/Globulin Ratio Procalcitonin 0.08 Urine Color Urine Appearance Urine pH Ur Specific Hall[place] Urine Protein Urine Glucose (UA) Urine Ketones Urine Blood Urine Nitrite Urine Bilirubin Urine Urobilinogen Ur Leukocyte Esterase Urine RBC Urine WBC Ur Epithelial Cells Urine Bacteria COVID-19 Eval Order Covid19 at [facility] SARS-CoV-2 (PCR) POSITIVE A* 06/01/21 06/01/21 06/01/21 08:17 08:17 09:36 WBC RBC Hgb Hct MCV MCH MCHC RDW Std Deviation RDW Coeff of Ronda Plt Count MPV Immature Gran % (Auto) Neut % (Auto) Lymph % (Auto) Randall % (Auto) Eos % (Auto) Baso % (Auto) Neut # (Auto) Lymph # (Auto) Randall # (Auto) Eos # (Auto) Baso # (Auto) Immature Gran # (Auto) PT INR APTT PTT Ratio VBG pH 7.45 H VBG pCO2 37 L VBG pO2 30 VBG HCO3 25 VBG O2 Saturation < 60.0 VBG Base Excess 1.6 Barometric Pressure 731.3 Sodium Potassium Chloride Carbon Dioxide Anion Gap BUN Creatinine Est Cr Clr Drug Dosing Est GFR ( Amer) Est GFR (Non-Af Amer) BUN/Creatinine Ratio Glucose Lactate 1.5 Calcium Magnesium Total Bilirubin AST ALT Alkaline Phosphatase Troponin I NT-Pro-B Natriuret Pep Total Protein Albumin Globulin Albumin/Globulin Ratio Procalcitonin Urine Color Red Urine Appearance Cloudy A Urine pH 5.5 Ur Specific [place] 1.020 Urine Protein 3+ H Urine Glucose (UA) Negative Urine Ketones Negative Urine Blood 3+ H Urine Nitrite Negative Urine Bilirubin 1+ H Urine Urobilinogen Negative Ur Leukocyte Esterase Negative Urine RBC >30 H Urine WBC 10-30 H Ur Epithelial Cells 5-10 H Urine Bacteria 1+ H COVID-19 Eval Order SARS-CoV-2 (PCR) Supervising Physician Co-Signing Physician Notes Attending addendum: The patient was seen and examined in emergency room He is status post Covid vaccination in September of this year and is status post positive for Covid 19 on 11 May and got treatment with remdesivir, dexamethasone and baricitinib. 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
[2021-06-01] MEDS ORDERED: OPTIRAY 320 125ml IV ONE (11:19)
--- NOTE | 2021-06-01 11:48 | CT Scan Report ---
CT ANGIOGRAM OF THE CHEST CLINICAL HISTORY: Dyspnea. Covid. COMPARISON STUDY: Chest x-ray dated 06/01/2021. TECHNIQUE: Following the IV administration of 110 cc of Optiray 320, CT angiogram of the chest was pe rformed from the upper abdomen to the thoracic inlet utilizing the pulmonary embolus protocol. Images are reviewed in the axial, sagittal, and coronal planes. 3-D MIPS images are created and assessed. I V contrast was administered without complication. A dose lowering technique was utilized adhering to the principles of ALARA. The examination is significantly compromised by motion artifact. CT DOSE: 543.43 mGycm FINDINGS: Thyroid: Imaged portions of the thyroid gland are normal in size and attenuation. Thoracic aorta: There is advanced atherosclerotic calcification of the thoracic aorta, which is eben l in caliber and demonstrates standard 3-vessel arch anatomy. No dissection is seen. Pulmonary vasculature: The pulmonary trunk is dilated, measuring 3.5 cm in diameter. This suggests pu lmonary artery hypertension. There are no filling defects identified in main, lobar, or proximal segm ental pulmonary branches to suggest pulmonary embolus. Evaluation of the peripheral branches is signi ficantly degraded by motion artifact. Heart: The patient is status post midline sternotomy. The heart is enlarged and without pericardial e ffusion. The coronary arteries and mitral annulus are densely calcified. Lungs and pleural spaces: Evaluation of the lung parenchyma is significantly degraded by motion artif act. Multifocal airspace consolidation is seen throughout both lungs. The trachea and central airways are clear. There are trace pleural effusions. Mediastinum: There are enlarged mediastinal lymph nodes. Right peritracheal nodes measure up to 19 mm in short axis. AP window nodes measure up to 11 mm in short axis. Ele: There is bilateral hilar lymphadenopathy. Hilar lymph nodes measure up to 14 mm in short axis. Axillae: There is no axillary lymphadenopathy. Upper abdomen: A hiatal hernia is noted. Partially visualized upper abdominal viscera is within eben l limits. Skeletal structures: The skeletal structures are osteopenic. Degenerative change and kyphoscoliosis i s noted in the thoracic spine. There is a superior end plate compression deformity of T4. No lytic or blastic bony lesions are seen. Advanced arthritic change is seen in the shoulders. There are healed left-sided rib fractures. IMPRESSION: 1. Motion compromised examination. 2. There is no evidence of central pulmonary embolus in the main, lobar, or proximal segmental pulmon brianna arteries. 3. Multifocal airspace consolidation is consistent with the reported history of a viral pneumonia. Ra diographic follow-up to resolution is recommended. 4. Cardiomegaly and trace pleural effusions. 5. Enlarged mediastinal and hilar lymph nodes are likely reactive. 6. Additional findings as above. ACT 112: Negative or not required by law. Electronically signed by: Gideon Moreno M.D. 06/01/2021 11:46 AM
[2021-06-01] MEDS ORDERED: FUROSEMIDE 40 MG/4 ML VIAL IV STA (12:49)
[2021-06-01 12:54] LABS: C Reactive Protein 14.3 mg/dl (0-0.29); Ferritin 934.7 ng/ml (8-388)
[2021-06-01 13:49] LABS: Adenovirus PCR Not Detected (NotDetected); Bordetella parapertussis PCR Not Detected (NotDetected); Bordetella pertussis PCR Not Detected (NotDetected); Chlamydia pneumoniae PCR Not Detected (NotDetected); Coronavirus 229E PCR Not Detected (NotDetected); Coronavirus HKU1 PCR Not Detected (NotDetected); Coronavirus NL63 PCR Not Detected (NotDetected); Coronavirus OC43PCR Not Detected (NotDetected); Human Metapneumovirus PCR Not Detected (NotDetected); Influenza A PCR Not Detected (NotDetected); Influenza B PCR Not Detected (NotDetected); Mycoplasma pneumoniae PCR Not Detected (NotDetected); Parainfluenza Virus 1 PCR Not Detected (NotDetected); Parainfluenza Virus 2 PCR Not Detected (NotDetected); Parainfluenza Virus 3 PCR Not Detected (NotDetected); Parainfluenza Virus 4 PCR Not Detected (NotDetected); Respiratory Syncytial VirusPCR Not Detected (NotDetected); Rhinovirus/Enterovirus PCR Not Detected (NotDetected)
[2021-06-01 14:03] LABS: Coronavirus CoV-2 (COVID19)PCR DETECTED (NotDetected)
[2021-06-01] MEDS ORDERED: INFLUENZA VACCINE HIGH DOSE PF 65+ 0.7 ML SYR IM ONE (15:00)
[2021-06-01] MEDS ORDERED: ACETAMINOPHEN 325 MG TAB PO PRN (15:08)
--- NOTE | 2021-06-01 16:01 | Electrocardiogram Report ---
Test Reason : Blood Pressure : / mmHG Vent. Rate : 110 BPM Atrial Rate : 104 BPM P-R Int : 000 ms QRS Dur : 106 ms QT Int : 300 ms P-R-T Axes : 000 -45 111 degrees QTc Int : 406 ms Poor data quality, interpretation may be adversely affected Multifocal atrial tachycardia Premature ventricular complexes Premature atrial complexes Left anterior fascicular block Voltage criteria for left ventricular hypertrophy Abnormal ECG No previous ECGs available Confirmed by Jesse López ([id number]) on 06/01/2021 4:00:57 PM Referred By: Confirmed By:Jesse López
[2021-06-01] MEDS: dexAMETHasone 6 MG in SYRINGE 0 ML IV SCH (16:20)
[2021-06-01] MEDS: TAMSULOSIN HCL 0.4 MG CAP PO SCH (20:12)
[2021-06-01] MEDS: ATORVASTATIN 10 MG TAB PO SCH (20:12)
[2021-06-01] MEDS: RIVAROXABAN 20 MG TAB PO SCH (20:12)
[2021-06-01] MEDS: TIMOLOL MALEATE 0.5% OP SOLN 5 ML BTL OPB SCH (20:13)
[2021-06-01] MEDS: BRIMONIDINE TARTRATE 0.2% 5ML OPB SCH (20:14)
[2021-06-01] MEDS: LATANOPROST 0.005% OP SOLN 2.5 ML BTL OPB SCH (20:14)
[2021-06-01] MEDS: SACUBITRIL-VALSARTAN 24-26 MG TAB PO SCH (20:14)
[2021-06-02 06:52] LABS: Hematocrit (blood only) 29.8 % (42-52); Hemoglobin 10.2 g/dL (14.0-18.0); Immature Granulocytes # (auto) 0.01 K/uL (0.00-0.02); Immature Granulocytes % (auto) 0.2 %; Lymphocytes # (auto) 0.33 K/uL (1.2-3.4); Mean Corpuscular Hemoglobin 29.1 pg (25-34); Mean Corpuscular Hgb Conc 34.2 g/dL (32-36); Mean Corpuscular Volume 85.1 fL (80-100); Mean Platelet Volume 9.9 fL (7.4-10.4); Monocytes # (auto) 0.28 K/uL (0.11-0.59); Monocytes % (auto) 5.1 %; Neutrophils # (auto) 4.87 K/uL (1.4-6.5); Neutrophils % (auto) 88.7 %; Platelet Count 307 K/uL (130-400); RDW Coefficient of Variation 14.5 % (11.5-14.5); RDW Standard Deviation 44.8 fL (36.4-46.3); White Blood Count 5.49 K/uL (4.8-10.8)
[2021-06-02 07:12] LABS: Albumin Level 1.8 gm/dl (3.4-5.0); BUN Creatinine Ratio 28.3 (10-20); Calcium 9.5 mg/dl (8.5-10.1); Creatinine Clr Calc Pharmacy 48.8 ml/min; Est GFR (African American) 85.2 ml/min; Est GFR (Non-African American) 73.5 ml/min; Magnesium 2.2 mg/dl (1.8-2.4); Potassium 3.8 mmol/L (3.5-5.1)
[2021-06-02 07:15] LABS: Albumin Globulin Ratio 0.4 (0.9-2); Bilirubin,Total 0.9 mg/dl (0.2-1); Globulin 4.6 gm/dl (2.5-4.0); Phosphorus 3.6 mg/dl (2.5-4.9); Total Protein 6.4 gm/dl (6.4-8.2)
[2021-06-02] MEDS: PANTOprazole 40 MG TAB PO SCH (09:08)
[2021-06-02] MEDS: LORATADINE 10 MG TAB PO SCH (09:09)
[2021-06-02] MEDS: ASPIRIN 81 MG ECTAB PO SCH (09:09)
[2021-06-02] MEDS: FUROSEMIDE 20 MG TAB PO SCH (09:09)
[2021-06-02] MEDS: ZINC SULFATE 220 MG CAPSULE PO SCH (09:10)
[2021-06-02] MEDS: METOPROLOL TARTRATE 25 MG TAB PO SCH (09:10)
[2021-06-02] MEDS: BRIMONIDINE TARTRATE 0.2% 5ML OPB SCH ×2 (09:19→19:30)
[2021-06-02] MEDS: dexAMETHasone 6 MG in SYRINGE 0 ML IV SCH (09:20)
[2021-06-02] MEDS: TIMOLOL MALEATE 0.5% OP SOLN 5 ML BTL OPB SCH ×2 (09:22→19:30)
[2021-06-02] MEDS: FLUTICASONE FUROATE 100MCG 14 PUFFS/INHALER INH SCH (09:23)
[2021-06-02] MEDS: SACUBITRIL-VALSARTAN 24-26 MG TAB PO SCH ×2 (10:40→19:37)
[2021-06-02] MEDS ORDERED: POTASSIUM CHLORIDE CRTAB 20 MEQ TABCR PO STA (10:50)
[2021-06-02] MEDS ORDERED: FUROSEMIDE 40 MG in SYRINGE 0 ML IV ONE (10:50)
[2021-06-02] MEDS ORDERED: FUROSEMIDE 40 MG/4 ML VIAL IV ONE (11:00)
--- NOTE | 2021-06-02 12:12 | Hospitalist Progress Note ---
Date of Service June 02, 2021 Assessment & Plan (1) Respiratory failure: Plan: Pt with evidence of post-viral COVID pneumonia but will need to rule out alternate cause of increased O2 requirement such as another viral infection such as influenza or RSV as well as possible PE. -No evidence of pulmonary embolism but has extensive bilateral multi lobar pneumonia suggestive of viral etiology - Biofire has been negative except COVID-19 virus - Continue respiratory support with oxygen, possible BIPAP - Broad-spectrum antibiotics started in the ED - procalcitonin negative, normal WBCs so will discontinue for now. Cultures are pending. -Procalcitonin has been negative-antibiotics have been discontinued -CRP is elevated at 14.30 - Start IV dexamethasone and he is not qualified for remdesivir - Reviewed case with pulmonology - no additional interventions recommended at this time -Clinically not any better -Has been getting Lasix intravenously to keep him on the spray drier side Hemoptysis Has been coughing of small amount of blood Will hold Xarelto for now and observe We will hold any pharmacologic anticoagulation for now Hematuria Noted in the emergency room on admission Seems to be clearing up (2) Hypoxia: Plan: As above (3) Pneumonia due to COVID-19 virus: Plan: Vaccinated for COVID-19 with [employer] in September Diagnosis of positive COVID-19 on 05/11/2021 Admitted to [place] 05/11, sent home 05/12. On 05/13, sats at home dropped to mid- 80s so returned to hospital and admitted again. After admission, he was on increasing amounts of oxygen and then was ultimately intubated and transferred to the ICU on 05/18. He was treated for the COVID pneumonia with remdesivir, dexamethasone, and baricitinib. He was also on empiric azithromycin and cefepime. Current management As above (4) Coronary artery disease: Plan: No cardiac symptoms (5) Atrial fibrillation: Plan: Rate is controlled Has been on Xarelto-on hold for now due to hemoptysis (6) Hypertension: Plan: Remains on the lower side of normal (7) Hyperlipidemia: Plan: Continue statin (8) Former smoker: Plan: DVT prophylaxis-SCDs for now Xarelto on hold due to hemoptysis Extensive discussion with pt's daughter, Yarelis, regarding goals of care. I also spoke with pt's , Leigh, and granddaughter Yecenia. Discussed poor prognosis with pt's current condition and co-morbidities. We extensively discussed the possibility of intubation, including the likely scenario of pt requiring prolonged mechanical ventilation if he would need to be reintubated and potential need for a trach in that situation. The family discussed amongst themselves and are all in agreement that pt would not want a prolonged intubation. Will continue respiratory support other than intubation. Code status DNR/DNI. Admission and Anticipated Discharge Date Admission Date: June 01, 2021 Subjective 06/02/2021 The patient was seen and examined in telemetry unit and in the Covid room He does not feel that great still having moderate to severe shortness of breath Feels very weak and lethargic Has been coughing up blood occasionally Review of Systems Review of Systems: All systems reviewed and are unremarkable except as noted below Respiratory: Moderate shortness of breath at rest with cough and hemoptysis Physical Exam Physical Exam: Lying in bed with moderate shortness of breath Constitutional: + ill appearing and average body habitus Eyes: PERRL, conjunctivae normal, anicteric sclerae ENMT: external ear and nose normal, oropharynx normal Neck: trachea midline, no thyromegaly Respiratory: + respiratory distress, + labored breathing and + cough Auscultation: + diminished lung sounds (More on the right lung) and + crackles (At the bases) Cardiovascular: Rate/Rhythm: regular rate and regular rhythm; not tachycardic Heart Sounds: normal S1 and normal S2; no murmur Extremities: no edema Gastrointestinal (Abdomen): Inspection/Auscultation: normal bowel sounds; abdomen not distended Percussion/Palpation: abdomen soft; abdomen nontender Musculoskeletal: No acute arthritis in any joint Neurologic: Alert and awake, generally very weak and lethargic. Moving all limbs equally Results & Data Results & Data ([facility]) Vital Signs (Past 12 Hours) Vital Signs Temp Pulse Pulse Pulse Resp BP Pulse Ox 06/02/21 11:54 36.4 C L 74 21 108/63 93 06/02/21 11:48 68 24 96 06/02/21 08:40 89 L 06/02/21 08:33 96 H 24 92 06/02/21 07:42 36.5 C 85 30 H 114/62 94 06/02/21 06:09 36.7 C 87 16 120/66 93 06/02/21 05:33 80 26 H 95 06/02/21 02:45 83 30 H 96 06/02/21 00:25 36.4 C L 86 18 91/56 L 96 Laboratory Results Short CBC 06/02/21 Range/Units 06:14 WBC 5.49 (4.8-10.8) K/uL Hgb 10.2 L (14.0-18.0) g/dL Hct 29.8 L (42-52) % Plt Count 307 (130-400) K/uL BMP 06/02/21 06:14 Sodium 132 L Potassium 3.8 Chloride 100 Carbon Dioxide 26 BUN 26 H Creatinine 0.92 Glucose 134 H Calcium 9.5 Liver Function 06/02/21 Range/Units 06:14 Total Bilirubin 0.9 (0.2-1) mg/dl AST 23 (15-37) U/L ALT 17 (12-78) U/L Alkaline Phosphatase 90 (45-117) U/L Albumin 1.8 L (3.4-5.0) gm/dl Medications Administered Current Inpatient Medications Acetaminophen (Acetaminophen 325 Mg Tab) 650 mg PO Q4H PRN PRN Reason: Pain or Fever Stop: 07/01/21 15:07 Aspirin (Aspirin 81 Mg Ectab) 81 mg PO DAILY JUDY Stop: 07/02/21 08:59 Last Admin: 06/02/21 09:09 Dose: 81 mg Documented by: Atorvastatin Calcium (Atorvastatin 10 Mg Tab) 10 mg PO HS JUDY Stop: 07/01/21 20:59 Last Admin: 06/01/21 20:12 Dose: 10 mg Documented by: Brimonidine Tartrate (Brimonidine Tartrate 0.2% 5ml) 1 drops OPB Q12H JUDY Stop: 07/01/21 20:59 Last Admin: 06/02/21 09:19 Dose: 1 drops Documented by: Fluticasone Furoate (Fluticasone Furoate 100mcg 14 Puffs/Inhaler) 1 puffs INH DAILY JUDY Stop: 07/02/21 08:59 Last Admin: 06/02/21 09:23 Dose: 1 puffs Documented by: Furosemide (Furosemide 20 Mg Tab) 20 mg PO DAILY JUDY Stop: 07/02/21 08:59 Last Admin: 06/02/21 09:09 Dose: 20 mg Documented by: Dexamethasone 6 mg/ Syringe 1.5 mls @ 1 mls/min IV DAILY JUDY Stop: 07/01/21 15:29 Last Admin: 06/02/21 09:20 Dose: 1 mls/min Documented by: Latanoprost (Latanoprost 0.005% Op Soln 2.5 Ml Btl) 1 drops OPB PM JUDY Stop: 07/01/21 20:59 Last Admin: 06/01/21 20:14 Dose: 1 drops Documented by: Loratadine (Loratadine 10 Mg Tab) 10 mg PO DAILY JUDY Stop: 07/02/21 08:59 Last Admin: 06/02/21 09:09 Dose: 10 mg Documented by: Metoprolol Tartrate (Metoprolol Tartrate 25 Mg Tab) 75 mg PO DAILY JUDY Stop: 07/02/21 08:59 Last Admin: 06/02/21 09:10 Dose: 75 mg Documented by: Pantoprazole Sodium (Pantoprazole 40 Mg Tab) 40 mg PO DAILYBB [facility]; Protocol Stop: 07/02/21 06:29 Last Admin: 06/02/21 09:08 Dose: 40 mg Documented by: Rivaroxaban (Rivaroxaban 20 Mg Tab) 20 mg PO QDD [facility] Stop: 07/01/21 17:59 Last Admin: 06/01/21 20:12 Dose: 20 mg Documented by: Sacubitril/Valsartan (Sacubitril-Valsartan 24-26 Mg Tab) 1 tab PO Q12H JUDY Stop: 07/01/21 20:59 Last Admin: 06/02/21 10:40 Dose: 1 tab Documented by: Tamsulosin HCl (Tamsulosin Hcl 0.4 Mg Cap) 0.4 mg PO HS JUDY Stop: 07/01/21 20:59 Last Admin: 06/01/21 20:12 Dose: 0.4 mg Documented by: Timolol Maleate (Timolol Maleate 0.5% Op Soln 5 Ml Btl) 1 drops OPB Q12H JUDY Stop: 07/01/21 20:59 Last Admin: 06/02/21 09:22 Dose: 1 drops Documented by: Zinc Sulfate (Zinc Sulfate 220 Mg Capsule) 220 mg PO DAILY JUDY Stop: 07/02/21 08:59 Last Admin: 06/02/21 09:10 Dose: 220 mg Documented by: (1) Respiratory failure Chronicity: acute Respiratory failure complication: hypoxia Qualified Code(s): J96.01 - Acute respiratory failure with hypoxia
[2021-06-02] MEDS: RIVAROXABAN 20 MG TAB PO SCH (17:26)
[2021-06-02] MEDS: LATANOPROST 0.005% OP SOLN 2.5 ML BTL OPB SCH (19:30)
[2021-06-02] MEDS: TAMSULOSIN HCL 0.4 MG CAP PO SCH (19:37)
[2021-06-02] MEDS: ATORVASTATIN 10 MG TAB PO SCH (19:37)
[2021-06-03] MEDS: PANTOprazole 40 MG TAB PO SCH (07:02)
[2021-06-03 07:34] LABS: Eosinophils # (auto) 0.01 K/uL (0-0.5); Eosinophils % (auto) 0.1 %; Hematocrit (blood only) 32.6 % (42-52); Hemoglobin 10.9 g/dL (14.0-18.0); Immature Granulocytes # (auto) 0.04 K/uL (0.00-0.02); Immature Granulocytes % (auto) 0.4 %; Lymphocytes # (auto) 0.29 K/uL (1.2-3.4); Lymphocytes % (auto) 2.8 %; Mean Corpuscular Hemoglobin 28.6 pg (25-34); Mean Corpuscular Hgb Conc 33.4 g/dL (32-36); Mean Corpuscular Volume 85.6 fL (80-100); Mean Platelet Volume 10.5 fL (7.4-10.4); Monocytes # (auto) 0.62 K/uL (0.11-0.59); Neutrophils # (auto) 9.31 K/uL (1.4-6.5); Neutrophils % (auto) 90.7 %; Platelet Count 397 K/uL (130-400); RDW Coefficient of Variation 14.4 % (11.5-14.5); Red Blood Count 3.81 M/uL (4.7-6.1); White Blood Count 10.27 K/uL (4.8-10.8)
[2021-06-03 07:55] LABS: Albumin Level 1.8 gm/dl (3.4-5.0); BUN Creatinine Ratio 46.1 (10-20); Calcium 9.8 mg/dl (8.5-10.1); Creatinine Clr Calc Pharmacy 47.8 ml/min; Est GFR (African American) 84.1 ml/min; Est GFR (Non-African American) 72.5 ml/min; Magnesium 2.3 mg/dl (1.8-2.4); Potassium 4.1 mmol/L (3.5-5.1)
[2021-06-03 07:58] LABS: Albumin Globulin Ratio 0.4 (0.9-2); Bilirubin,Total 0.9 mg/dl (0.2-1); Globulin 4.6 gm/dl (2.5-4.0); Phosphorus 2.7 mg/dl (2.5-4.9); Total Protein 6.4 gm/dl (6.4-8.2)
[2021-06-03] MEDS: ASPIRIN 81 MG ECTAB PO SCH (08:31)
[2021-06-03] MEDS: LORATADINE 10 MG TAB PO SCH (08:32)
[2021-06-03] MEDS: ZINC SULFATE 220 MG CAPSULE PO SCH (08:33)
[2021-06-03] MEDS: METOPROLOL TARTRATE 25 MG TAB PO SCH (08:33)
[2021-06-03] MEDS: FUROSEMIDE 20 MG TAB PO SCH (08:34)
[2021-06-03] MEDS: SACUBITRIL-VALSARTAN 24-26 MG TAB PO SCH ×2 (08:34→20:59)
[2021-06-03] MEDS: dexAMETHasone 6 MG in SYRINGE 0 ML IV SCH (08:36)
[2021-06-03] MEDS: BRIMONIDINE TARTRATE 0.2% 5ML OPB SCH ×2 (13:20→20:59)
[2021-06-03] MEDS: TIMOLOL MALEATE 0.5% OP SOLN 5 ML BTL OPB SCH ×2 (13:22→20:58)
--- NOTE | 2021-06-03 15:00 | Hospitalist Progress Note ---
Date of Service June 03, 2021 Assessment & Plan (1) Respiratory failure: Plan: Pt with evidence of post-viral COVID pneumonia but will need to rule out alternate cause of increased O2 requirement such as another viral infection such as influenza or RSV as well as possible PE. -No evidence of pulmonary embolism but has extensive bilateral multi lobar pneumonia suggestive of viral etiology - Biofire has been negative except COVID-19 virus - Continue respiratory support with oxygen, possible BIPAP - Broad-spectrum antibiotics started in the ED - procalcitonin negative, normal WBCs so will discontinue for now. Cultures are pending. -Procalcitonin has been negative-antibiotics have been discontinued -CRP is elevated at 14.30 - Start IV dexamethasone and he is not qualified for remdesivir - Reviewed case with pulmonology - no additional interventions recommended at this time -Clinically better but has been requiring high flow oxygen at a rate of 40 L/min and 95% FiO2 to maintain saturation -Increasing weakness Hemoptysis Has been coughing of small amount of blood Will hold Xarelto for now and observe We will hold any pharmacologic anticoagulation for now After discussion with the daughter Xarelto was restarted He continues to have minimal hemoptysis Hematuria Noted in the emergency room on admission Seems to be clearing up (2) Hypoxia: Plan: As above (3) Pneumonia due to COVID-19 virus: Plan: Vaccinated for COVID-19 with [employer] in September Diagnosis of positive COVID-19 on 05/11/2021 Admitted to [place] 05/11, sent home 05/12. On 05/13, sats at home dropped to mid- 80s so returned to hospital and admitted again. After admission, he was on increasing amounts of oxygen and then was ultimately intubated and transferred to the ICU on 05/18. He was treated for the COVID pneumonia with remdesivir, dexamethasone, and baricitinib. He was also on empiric azithromycin and cefepime. Current management As above (4) Coronary artery disease: Plan: No cardiac symptoms (5) Atrial fibrillation: Plan: Rate is controlled Has been on Xarelto-on hold for now due to hemoptysis History of prior CVA and also clot formation so the family members especially the daughter wanted to have Xarelto reintroduced Xarelto was restarted after discussion with the Daughter (6) Hypertension: Plan: Remains on the lower side of normal (7) Hyperlipidemia: Plan: Continue statin (8) Former smoker: Plan: DVT prophylaxis-SCDs for now Xarelto on hold due to hemoptysis and restarted later on Extensive discussion with pt's daughter, Yarelis, regarding goals of care. I also spoke with pt's , Leigh, and granddaughter Yecenia. Discussed poor prognosis with pt's current condition and co-morbidities. We extensively discussed the possibility of intubation, including the likely scenario of pt requiring prolonged mechanical ventilation if he would need to be reintubated and potential need for a trach in that situation. The family discussed amongst themselves and are all in agreement that pt would not want a prolonged intubation. Will continue respiratory support other than intubation. Code status DNR/DNI. Has had a long discussion with the family members on 2 separate occasions Later on discussed with the patient and the family members together over phone The patient expressed that he does not want to be intubated so he remains DNR Admission and Anticipated Discharge Date Admission Date: June 01, 2021 Subjective 06/02/2021 The patient was seen and examined in telemetry unit and in the Covid room He does not feel that great still having moderate to severe shortness of breath Feels very weak and lethargic Has been coughing up blood occasionally 06/03/2021 The patient was seen and examined in telemetry unit and in the Covid room He has been feeling a little better but is still requiring high flow nasal cannula oxygen at a rate of 40 L/min with 95% FiO2 to maintain saturation Still has minimal hemoptysis Review of Systems Review of Systems: All systems reviewed and are unremarkable except as noted below Physical Exam Physical Exam: Lying in bed with moderate shortness of breath Constitutional: + ill appearing and average body habitus Eyes: PERRL, conjunctivae normal, anicteric sclerae ENMT: external ear and nose normal, oropharynx normal Neck: trachea midline, no thyromegaly Respiratory: + respiratory distress, + labored breathing and + cough Auscultation: + diminished lung sounds (More on the right lung) and + crackles (At the bases) Cardiovascular: Rate/Rhythm: regular rate and regular rhythm; not tachycardic Heart Sounds: normal S1 and normal S2; no murmur Extremities: no edema Gastrointestinal (Abdomen): Inspection/Auscultation: normal bowel sounds; abdomen not distended Percussion/Palpation: abdomen soft; abdomen nontender Musculoskeletal: No acute arthritis in any joint Neurologic: Alert and awake. Generally weak and lethargic. Moving all limbs equally Results & Data Results & Data ([facility]) Vital Signs (Past 12 Hours) Vital Signs Temp Pulse Pulse Pulse Resp BP Pulse Ox 06/03/21 13:11 36.5 C 83 24 99/64 L 85 L 06/03/21 11:00 80 18 95 06/03/21 08:44 85 22 90 06/03/21 08:28 36.5 C 100 H 24 146/93 H 88 L 06/03/21 07:19 82 06/03/21 05:59 83 30 H 93 06/03/21 04:26 36.6 C 83 20 124/57 L 91 Laboratory Results Short CBC 06/03/21 Range/Units 05:33 WBC 10.27 (4.8-10.8) K/uL Hgb 10.9 L (14.0-18.0) g/dL Hct 32.6 L (42-52) % Plt Count 397 (130-400) K/uL BMP 06/03/21 05:33 Sodium 132 L Potassium 4.1 Chloride 99 Carbon Dioxide 26 BUN 43 H D Creatinine 0.93 Glucose 133 H Calcium 9.8 Liver Function 06/03/21 Range/Units 05:33 Total Bilirubin 0.9 (0.2-1) mg/dl AST 24 (15-37) U/L ALT 18 (12-78) U/L Alkaline Phosphatase 93 (45-117) U/L Albumin 1.8 L (3.4-5.0) gm/dl Medications Administered Current Inpatient Medications Acetaminophen (Acetaminophen 325 Mg Tab) 650 mg PO Q4H PRN PRN Reason: Pain or Fever Stop: 07/01/21 15:07 Aspirin (Aspirin 81 Mg Ectab) 81 mg PO DAILY JUDY Stop: 07/02/21 08:59 Last Admin: 06/03/21 08:31 Dose: 81 mg Documented by: Atorvastatin Calcium (Atorvastatin 10 Mg Tab) 10 mg PO HS JUDY Stop: 07/01/21 20:59 Last Admin: 06/02/21 19:37 Dose: 10 mg Documented by: Brimonidine Tartrate (Brimonidine Tartrate 0.2% 5ml) 1 drops OPB Q12H JUDY Stop: 07/01/21 20:59 Last Admin: 06/03/21 13:20 Dose: 1 drops Documented by: Fluticasone Furoate (Fluticasone Furoate 100mcg 14 Puffs/Inhaler) 1 puffs INH DAILY JUDY Stop: 07/02/21 08:59 Last Admin: 06/02/21 09:23 Dose: 1 puffs Documented by: Furosemide (Furosemide 20 Mg Tab) 20 mg PO DAILY JUDY Stop: 07/02/21 08:59 Last Admin: 06/03/21 08:34 Dose: 20 mg Documented by: Dexamethasone 6 mg/ Syringe 1.5 mls @ 1 mls/min IV DAILY JUDY Stop: 07/01/21 15:29 Last Admin: 06/03/21 08:36 Dose: 1 mls/min Documented by: Latanoprost (Latanoprost 0.005% Op Soln 2.5 Ml Btl) 1 drops OPB PM [facility] Stop: 07/01/21 20:59 Last Admin: 06/02/21 19:30 Dose: 1 drops Documented by: Loratadine (Loratadine 10 Mg Tab) 10 mg PO DAILY [facility] Stop: 07/02/21 08:59 Last Admin: 06/03/21 08:32 Dose: 10 mg Documented by: Metoprolol Tartrate (Metoprolol Tartrate 25 Mg Tab) 75 mg PO DAILY [facility] Stop: 07/02/21 08:59 Last Admin: 06/03/21 08:33 Dose: 75 mg Documented by: Pantoprazole Sodium (Pantoprazole 40 Mg Tab) 40 mg PO DAILYBB [facility]; Protocol Stop: 07/02/21 06:29 Last Admin: 06/03/21 07:02 Dose: 40 mg Documented by: Rivaroxaban (Rivaroxaban 20 Mg Tab) 20 mg PO QDD [facility] Stop: 07/01/21 17:59 Last Admin: 06/02/21 17:26 Dose: 20 mg Documented by: Sacubitril/Valsartan (Sacubitril-Valsartan 24-26 Mg Tab) 1 tab PO Q12H [facility] Stop: 07/01/21 20:59 Last Admin: 06/03/21 08:34 Dose: 1 tab Documented by: Tamsulosin HCl (Tamsulosin Hcl 0.4 Mg Cap) 0.4 mg PO HS [facility] Stop: 07/01/21 20:59 Last Admin: 06/02/21 19:37 Dose: 0.4 mg Documented by: Timolol Maleate (Timolol Maleate 0.5% Op Soln 5 Ml Btl) 1 drops OPB Q12H JUDY Stop: 07/01/21 20:59 Last Admin: 06/03/21 13:22 Dose: 1 drops Documented by: Zinc Sulfate (Zinc Sulfate 220 Mg Capsule) 220 mg PO DAILY JUDY Stop: 07/02/21 08:59 Last Admin: 06/03/21 08:33 Dose: 220 mg Documented by: (1) Respiratory failure Chronicity: acute Respiratory failure complication: hypoxia Qualified Code(s): J96.01 - Acute respiratory failure with hypoxia
[2021-06-03] MEDS: FLUTICASONE FUROATE 100MCG 14 PUFFS/INHALER INH SCH (16:07)
[2021-06-03] MEDS: RIVAROXABAN 20 MG TAB PO SCH (16:09)
[2021-06-03] MEDS: LATANOPROST 0.005% OP SOLN 2.5 ML BTL OPB SCH (20:59)
[2021-06-03] MEDS: ATORVASTATIN 10 MG TAB PO SCH (20:59)
[2021-06-03] MEDS: TAMSULOSIN HCL 0.4 MG CAP PO SCH (20:59)
[2021-06-04] MEDS ORDERED: CHLORASEPTIC 1.4% SOLN 180 ML BTL MT PRN (00:43)
[2021-06-04 06:34] LABS: Eosinophils # (auto) 0.01 K/uL (0-0.5); Eosinophils % (auto) 0.1 %; Hematocrit (blood only) 31.5 % (42-52); Hemoglobin 10.6 g/dL (14.0-18.0); Immature Granulocytes # (auto) 0.03 K/uL (0.00-0.02); Immature Granulocytes % (auto) 0.3 %; Lymphocytes # (auto) 0.44 K/uL (1.2-3.4); Lymphocytes % (auto) 5.1 %; Mean Corpuscular Hemoglobin 28.6 pg (25-34); Mean Corpuscular Hgb Conc 33.7 g/dL (32-36); Mean Corpuscular Volume 84.9 fL (80-100); Mean Platelet Volume 9.7 fL (7.4-10.4); Monocytes # (auto) 0.33 K/uL (0.11-0.59); Monocytes % (auto) 3.8 %; Neutrophils # (auto) 7.79 K/uL (1.4-6.5); Neutrophils % (auto) 90.7 %; Platelet Count 361 K/uL (130-400); RDW Coefficient of Variation 14.3 % (11.5-14.5); RDW Standard Deviation 44.1 fL (36.4-46.3); Red Blood Count 3.71 M/uL (4.7-6.1)
[2021-06-04 06:55] LABS: BUN Creatinine Ratio 53.1 (10-20); C Reactive Protein 8.35 mg/dl (0-0.29); Calcium 9.5 mg/dl (8.5-10.1); Creatinine Clr Calc Pharmacy 53.6 ml/min; Est GFR (African American) 90.4 ml/min
[2021-06-04] MEDS: PANTOprazole 40 MG TAB PO SCH (07:16)
[2021-06-04] MEDS: dexAMETHasone 6 MG in SYRINGE 0 ML IV SCH (09:10)
[2021-06-04] MEDS: LORATADINE 10 MG TAB PO SCH (09:14)
[2021-06-04] MEDS: METOPROLOL TARTRATE 25 MG TAB PO SCH (09:14)
[2021-06-04] MEDS: SACUBITRIL-VALSARTAN 24-26 MG TAB PO SCH ×2 (09:16→20:36)
[2021-06-04] MEDS: FUROSEMIDE 20 MG TAB PO SCH (09:17)
[2021-06-04] MEDS: ZINC SULFATE 220 MG CAPSULE PO SCH (09:17)
[2021-06-04] MEDS: ASPIRIN 81 MG ECTAB PO SCH (09:17)
[2021-06-04] MEDS: BRIMONIDINE TARTRATE 0.2% 5ML OPB SCH ×2 (09:18→20:37)
[2021-06-04] MEDS: FLUTICASONE FUROATE 100MCG 14 PUFFS/INHALER INH SCH (09:19)
[2021-06-04] MEDS: TIMOLOL MALEATE 0.5% OP SOLN 5 ML BTL OPB SCH ×2 (12:33→20:37)
--- NOTE | 2021-06-04 15:37 | Palliative Care Consultation ---
Date of Consultation June 04, 2021 Assessment & Plan (1) Palliative care encounter: Mr. Storm is an 89 year old male who presented to the [facility] with hemoptysis. He started to feel fatigue on 05/07, was admitted at the [facility] on 05/11, intubated on 05/18, extubated on 05/20, and transferred to an acute rehab hospital on 05/25. Additional PMH includes: CAD, AF, HTN, HLD and is a smoker. He is being treated for post COVID viral PNA and is on Hi-Flow O2. Numerous conversations were held with the patient who indicated that he would not want intubation in the event of further respiratory failure. Palliative Medicine was consulted to discuss overall goals of care. I met with Mr. Storm in room 202. He was sitting upright in his bed and in no apparent distress. He was on Hi-Flow FiO2 100% 60L and SpO2 was 89%. We talked about his hospital course and what his overall goals consisted of. He stated that he had received both COVID vaccines and felt 'defeated' as he felt like he was doing the right thing by receiving them. We discussed intubation and he confirmed that he would NOT want intubation nor CPR in the event of further respiratory failure or cardiac arrest. He also confirmed he would not consider a trach. For now, he is comfortable with supportive care that he is receiving. I did attempt to call the patients , Leigh at [phone]; however, was unable to reach her. Palliative will reattempt to discuss care and answer questions with his tomorrow. (2) Pneumonia due to COVID-19 virus: (3) Hypoxia: (4) Weakness: History of Present Illness Reason for Consultation: Goals of care Requesting Physician: Dr. Walters Attending Physician: Benjamin Kate MD History of Present Illness Mr. Storm is an 89 year old male who presented to the [facility] with hemoptysis. He started to feel fatigue on 05/07, was admitted at the [facility] on 05/11, intubated on 05/18, extubated on 05/20, and transferred to an acute rehab hospital on 05/25. Additional PMH includes: CAD, AF, HTN, HLD and is a smoker. He is being treated for post covid viral PNA and is on Hi-Flow O2. Numerous conversations were held with the patient who indicated that he would not want intubation in the event of further respiratory failure. Palliative Medicine was consulted to discuss overall goals of care. Please see A/P for further details. Thanks for involving Palliative Medicine with this individual. Allergies Allergy/AdvReac Type Severity Reaction Status Date / Time No Known Allergies Allergy Unverified 06/01/21 09:07 Home Medications Medication Instructions Recorded Confirmed Type Milk of Magnesia 2.4 g PO DAILY PRN 06/01/21 06/01/21 History Potassium Phosphate Sodium 1 packet PO TID 06/01/21 06/01/21 History Phosphate Zinc Sulfate 220mg 220 mg PO DAILY 06/01/21 06/01/21 History acetaminophen 650 mg 650 mg PO Q4H PRN 06/01/21 06/01/21 History tablet,extended release ascorbic acid (vitamin C) 500 mg 500 mg PO DAILY 06/01/21 06/01/21 History tablet aspirin 81 mg capsule 81 mg PO DAILY 06/01/21 06/01/21 History atorvastatin 10 mg tablet 10 mg PO HS 06/01/21 06/01/21 History bisacodyl 10 mg rectal suppository 10 mg CA DAILY PRN 06/01/21 06/01/21 History brimonidine 0.2 % eye drops 1 drp OPB Q12H 06/01/21 06/01/21 History cholecalciferol (vitamin D3) 25 25 mcg PO DAILY 06/01/21 06/01/21 History mcg (1,000 unit) tablet docusate sodium 100 mg capsule 100 mg PO BID 06/01/21 06/01/21 History (Colace) fluticasone furoate 100 1 inh INHALATION DAILY 06/01/21 06/01/21 History mcg/actuation blister powder for inhalation fluticasone propionate 50 1 spray INTRANASAL DAILY 06/01/21 06/01/21 History mcg/actuation nasal spray,suspension furosemide 20 mg tablet 20 mg PO DAILY 06/01/21 06/01/21 History latanoprost 0.005 % eye drops 1 drp OPB PM 06/01/21 06/01/21 History lidocaine 5 % topical patch 2 patch TOPICAL QAM 06/01/21 06/01/21 History loratadine 10 mg tablet 10 mg PO DAILY 06/01/21 06/01/21 History metoprolol tartrate 25 mg tablet 75 mg PO DAILY 06/01/21 06/01/21 History omega-3 fatty acids 1,000 mg 1,000 mg PO DAILY 06/01/21 06/01/21 History capsule pantoprazole 20 mg tablet,delayed 20 mg PO DAILYBB 06/01/21 06/01/21 History release polyethylene glycol 3350 17 17 g PO QDL PRN 06/01/21 06/01/21 History gram/dose oral powder (Miralax) rivaroxaban 20 mg tablet 20 mg PO QDD 06/01/21 06/01/21 History sacubitril 24 mg-valsartan 26 mg 1 tab PO BID 06/01/21 06/01/21 History tablet (Entresto) sennosides 8.6 mg-docusate sodium 1 tab-cap PO QDL PRN 06/01/21 06/01/21 History 50 mg tablet (Senokot-S) tamsulosin 0.4 mg capsule 0.4 mg PO HS 06/01/21 06/01/21 History timolol 0.5 % eye drops 1 drp OPB BID 06/01/21 06/01/21 History Patient History Medical History Aortic stenosis Atrial fibrillation Diagnosed in Jul 2020 - was on Eliquis initially but recently changed to Xarelto Carotid stenosis Coronary artery disease 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 Former smoker Hyperlipidemia Hypertension Hypoxia Indwelling Ewing catheter present Palliative care encounter Pneumonia due to COVID-19 virus Required intubation 05/18-05/20/21 Pulmonary fibrosis Urinary retention Weakness Surgical History History of aortic valve replacement Social History Smoking Status: Former smoker Cigarettes Per Day: 2 PPD until quit in 1998; Smoking End Date: 1998; Second Hand Exposure: No; Do You Dip or Chew Tobacco: No; Tobacco Cessation Education Requested by Patient: No Hx Alcohol Use: No Hx Substance Use: No Preferred Language: Maltese Communication Ability: Effective Bisque Brusher Required: No Beliefs That Will Affect Care: None marital status: Current Living Situation: Personal Care Facility Current Living Situation Comment: daughter nearby who helps with care needs current occupational status: retired 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 Other Information That Helps Us Care for You: No Feels Safe at Home: Yes Safety Concerns: Feels Safe At This Time Assistive Devices: None Review of Systems Review of Systems: [place] System Assessment Scale: Pain: 0/1 Anxiety: 1/3 SOB: 2/3 Nausea: 0/3 Palliative Performance Scale: 30% Physical Exam Constitutional: + frail appearing and cooperative ENMT: Mouth: + dry oral mucous membranes Respiratory: + labored breathing Auscultation: + diminished lung sounds Cardiovascular: Rate/Rhythm: regular rate and regular rhythm Heart Sounds: normal S1 and normal S2 Gastrointestinal (Abdomen): normal bowel sounds, soft, nontender, no hepatosplenomegaly Skin: + pallor Psychiatric: Orientation: alert and oriented x 3 Insight: good insight Judgement: good judgement Results & Data ([facility]) Vital Signs (Past 12 Hours) Vital Signs Temp Pulse Pulse Pulse Resp BP Pulse Ox 06/04/21 10:58 76 24 100 06/04/21 10:51 36.4 C L 78 27 H 128/69 100 06/04/21 06:59 36.5 C 81 33 H 139/83 95 06/04/21 05:44 81 24 95 06/04/21 05:16 37.4 C 81 26 H 148/73 H 90 PG Care Time/CCT Total # of Minutes Spent Total Time Spent with Patient: Total time spent is greater than 50% in coor dination of care (as documented) at patient's floor/unit and/or counseling patient: 70 minutes with > 50% of that time spent assessing the patient, discussing goals of care with the patient, collaborating with IDT Coding Level of Care Code 82760 Initial Inpt Care Lvl 3 Diagnoses Palliative care encounter Z51.5 Pneumonia due to COVID-19 virus U07.1; J12.82 Hypoxia R09.02 Weakness R53.1 Time Spent (min) 70
[2021-06-04] MEDS ORDERED: ALBUTEROL 0.083% NEBU SOLN 3 ML VIAL NEB SCH (15:45)
--- NOTE | 2021-06-04 16:06 | Hospitalist Progress Note ---
Date of Service June 04, 2021 Assessment & Plan (1) Respiratory failure: Plan: COVID 19 Pneumonia Acute respiratory failure with hypoxia --CTA:There is no evidence of central pulmonary embolus in the main, lobar, or proximal segmental pulmonary arteries. Multifocal airspace consolidation is consistent with the reported history of a viral pneumonia. Radiographic follow- up to resolution is recommended. Cardiomegaly and trace pleural effusions. Enlarged mediastinal and hilar lymph nodes are likely reactive. -CRP:14.3>8.3 -Biofire: Positive for COVID -Continue respiratory support with oxygen, BIPAP/High flow oxygen -Continue Dexamethasone Currently on High flow oxygen On Xarelto for anticoagulation Hemoptysis In setting of Xarelto use associated with cough Prior hospitalist discussed with family Xarelto was restarted Monitor CBC Consider to hold anticoagulation if symptoms worsen Hb Stable Hematuria Seemed to have resolved (2) Hypoxia: Plan: As above (3) Pneumonia due to COVID-19 virus: Plan: Vaccinated for COVID-19 with Panono in September Diagnosis of positive COVID-19 on 05/11/2021 Admitted to [facility] 05/11, sent home 05/12. On 05/13, sats at home dropped to mid- 80s so returned to hospital and admitted again. After admission, he was on increasing amounts of oxygen and then was ultimately intubated and transferred to the ICU on 05/18. He was treated for the COVID pneumonia with remdesivir, dexamethasone, and baricitinib. He was also on empiric azithromycin and cefepime. Current management As above (4) Coronary artery disease: Plan: No cardiac symptoms (5) Atrial fibrillation: Plan: Rate is controlled on Xarelto for anticoagulation Continue Metoprolol H/O prior CVA and also clot formation: family members especially the daughter wanted to have Xarelto continued (6) Hypertension: Plan: BP stable continue current meds (7) Hyperlipidemia: Plan: Continue statin (8) Former smoker: Plan: DVT Px: Xarelto Code Status DNI/DNR Palliative care consulted to address goals of Care Admission and Anticipated Discharge Date Admission Date: June 01, 2021 Subjective Patient is seen and examined bedside States having cough with minimal scant hemoptysis Also reports dyspnea on exertion Currently on high flow oxygen Offers no other complaints Review of Systems Review of Systems: All systems reviewed & are unremarkable except as noted in Subjective Physical Exam Physical Exam: Physical Exam: Vitals signs as noted above General Appearance: Ill-appearing, no apparent distress Head: normocephalic, Atraumatic Eyes: normal inspection, EOMI Neck: supple, Trachea midline Respiratory/Chest: Decreased breath sounds, CTA Cardiovascular: S1, S2, No murmur Abdomen/GI:Soft, Non tender, Bowel sounds present Extremities/Musculoskeletal:normal inspection, no edema Neurologic/Psych:AAOX3, grossly no focal neurological deficits Skin: normal color, warm Results & Data Results & Data ([facility]) Vital Signs (Past 12 Hours) Vital Signs Temp Pulse Pulse Pulse Resp BP Pulse Ox 06/04/21 15:37 36.7 C 79 22 113/58 L 91 06/04/21 15:35 78 20 91 06/04/21 10:58 76 24 100 06/04/21 10:51 36.4 C L 78 27 H 128/69 100 06/04/21 06:59 36.5 C 81 33 H 139/83 95 06/04/21 05:44 81 24 95 06/04/21 05:16 37.4 C 81 26 H 148/73 H 90 Laboratory Results Short CBC 06/04/21 Range/Units 05:51 WBC 8.60 (4.8-10.8) K/uL Hgb 10.6 L (14.0-18.0) g/dL Hct 31.5 L (42-52) % Plt Count 361 (130-400) K/uL BMP 06/04/21 05:51 Sodium 133 L Potassium 4.0 Chloride 100 Carbon Dioxide 27 BUN 44 H Creatinine 0.83 Glucose 116 H Calcium 9.5 (1) Respiratory failure Chronicity: acute Respiratory failure complication: hypoxia Qualified Code(s): J96.01 - Acute respiratory failure with hypoxia
[2021-06-04] MEDS ORDERED: ALBUTEROL 0.083% NEBU SOLN 3 ML VIAL NEB PRN (16:20)
[2021-06-04] MEDS: RIVAROXABAN 20 MG TAB PO SCH (17:39)
[2021-06-04] MEDS: ATORVASTATIN 10 MG TAB PO SCH (20:36)
[2021-06-04] MEDS: LATANOPROST 0.005% OP SOLN 2.5 ML BTL OPB SCH (20:37)
[2021-06-04] MEDS: TAMSULOSIN HCL 0.4 MG CAP PO SCH (20:37)
[2021-06-05] MEDS ORDERED: ALBUT/IPRATROP 3MG/0.5MG NEB 3 ML VIAL NEB STA (01:45)
[2021-06-05] MEDS ORDERED: dexAMETHasone 6 MG in SYRINGE 0 ML IV SCH (01:45)
[2021-06-05] MEDS ORDERED: METOPROLOL TARTRATE 1 MG/ML VIAL IV STA (02:15)
[2021-06-05 02:37] LABS: Eosinophils # (auto) 0.02 K/uL (0-0.5); Eosinophils % (auto) 0.3 %; Hematocrit (blood only) 29.8 % (42-52); Immature Granulocytes # (auto) 0.03 K/uL (0.00-0.02); Immature Granulocytes % (auto) 0.4 %; Lymphocytes # (auto) 0.43 K/uL (1.2-3.4); Lymphocytes % (auto) 5.9 %; Mean Corpuscular Hemoglobin 28.1 pg (25-34); Mean Corpuscular Hgb Conc 33.6 g/dL (32-36); Mean Corpuscular Volume 83.7 fL (80-100); Mean Platelet Volume 9.1 fL (7.4-10.4); Monocytes # (auto) 0.29 K/uL (0.11-0.59); Neutrophils # (auto) 6.55 K/uL (1.4-6.5); Neutrophils % (auto) 89.4 %; Platelet Count 329 K/uL (130-400); RDW Coefficient of Variation 14.1 % (11.5-14.5); Red Blood Count 3.56 M/uL (4.7-6.1); White Blood Count 7.32 K/uL (4.8-10.8)
[2021-06-05 02:43] LABS: Base Excess ABG 2.1 mEq/L (-9-1.8); HCO3 ABG 25 mmol/L (19-24); Oxygen Saturation ABG 90.3 % (90-95); PCO2 ABG 34 mmHg (35-46); PO2 ABG 57 mmHg (80-95); pH ABG 7.49 (7.35-7.45)
[2021-06-05 02:48] LABS: Partial Thromboplastin Ratio 1.1; Partial Thromboplastin Time 29.2 Seconds (21.0-31.0)
[2021-06-05 03:07] LABS: Allen Test Pos (Pos)
[2021-06-05 03:08] LABS: Albumin Globulin Ratio 0.4 (0.9-2); Albumin Level 1.8 gm/dl (3.4-5.0); BUN Creatinine Ratio 56.6 (10-20); C Reactive Protein 8.22 mg/dl (0-0.29); Calcium 9.1 mg/dl (8.5-10.1); Creatinine Clr Calc Pharmacy 70.6 ml/min; Est GFR (African American) 101.3 ml/min; Est GFR (Non-African American) 87.4 ml/min; Globulin 4.2 gm/dl (2.5-4.0); Magnesium 2.1 mg/dl (1.8-2.4)
[2021-06-05] MEDS: PANTOprazole 40 MG TAB PO SCH (06:00)
--- NOTE | 2021-06-05 06:48 | XRay Report ---
XR chest 1V portable CLINICAL HISTORY: low o2 COMPARISON STUDY: Chest radiograph and chest CT June 01, 2021. FINDINGS: There are median sternotomy wires and prosthetic cardiac valve. Cardiomegaly is again noted . No pneumothorax or pleural effusion is at identified. Extensive bilateral airspace opacities are no tai. These are similar to prior chest CT. IMPRESSION: No significant change in extensive bilateral airspace opacities suggestive of pneumonia. ACT 112: Negative or not required by law. Electronically signed by: Lalo Vila M.D. 06/05/2021 6:47 AM
--- NOTE | 2021-06-05 08:13 | Communication Note ---
Date of Service: June 05, 2021 Late entry : Made aware by RN of O2 sats 80s requiring BiPAP. Persistent hemoptysis. Hold aspirin and Eliquis for now. Will relay to AM provider.
[2021-06-05] MEDS: BRIMONIDINE TARTRATE 0.2% 5ML OPB SCH ×2 (08:15→21:29)
[2021-06-05] MEDS: FUROSEMIDE 20 MG TAB PO SCH (08:16)
[2021-06-05] MEDS: SACUBITRIL-VALSARTAN 24-26 MG TAB PO SCH ×2 (08:17→21:26)
[2021-06-05] MEDS: LORATADINE 10 MG TAB PO SCH (08:17)
[2021-06-05] MEDS: METOPROLOL TARTRATE 25 MG TAB PO SCH (08:23)
[2021-06-05] MEDS: ZINC SULFATE 220 MG CAPSULE PO SCH (08:23)
[2021-06-05] MEDS: TIMOLOL MALEATE 0.5% OP SOLN 5 ML BTL OPB SCH ×2 (08:23→21:29)
[2021-06-05] MEDS: FLUTICASONE FUROATE 100MCG 14 PUFFS/INHALER INH SCH (08:24)
--- NOTE | 2021-06-05 08:44 | Palliative Care Progress Note ---
Date of Service June 05, 2021 Assessment & Plan (1) Palliative care encounter: Plan: I met with Xiang at his bedside. He was on Hi-Flow FiO2 100% 40L and SpO2 was 89%. We talked about his hospital course and what his overall goals consisted of. He admittedly is more tired today and appears 'tuckered out'. His family had previously suggested and requested an evaluation from the pulmonary team which occurred today; however, after the evaluation, no further interventions were recommended and a palliative approach was suggested. I did discuss this with the patient and he indicated that if there was nothing else that could be done," why continue doing what we are doing". He said that it is important for him to be able to see his family and wishes he could go home. Unfortunately, due to the level of oxygen he is receiving, it exceeds any out of hospital capability, even from a comfort standpoint. For now, he is comfortable with supportive care that he is receiving, but does recognize that he does not have 'much drive left in him'. I talked to his daughter, Yarelis on the phone numerous times today totaling 40 minutes discussing visitation at end of life in the covid unit. Our goal would be to have Mr. Storm removed from the covid unit; however, logistically, this is not an option at the moment. I did discuss visitation should the family and patient wish to transition to comfort measures only with Hiral Khan in infectious disease who granted a one time visitation for two people in the covid unit with appropriate PPE donned, including N95, surgical mask, shield, gown, gloves, booties. Once patients two family members have left the room, the visit will be terminated. This visit has been cleared, but currently patient wishes NOT to transition to comfort measures yet, therefore should revisit should the transition to [employer] occur. Discussed with family and provided some mechanisms of verbage to use with their father as they do recognize that it appears that he is struggling. Palliative will follow. (2) Anxiety: Plan: A contributing factor to his hypoxia. Unfortunately, due to his fragile respiratory drive, I would be hesitant to order something for him without him being on comfort measures due to further deconditioning of his respiratory drive. This was discussed with family and patient. (3) Pneumonia due to COVID-19 virus: (4) Hypoxia: (5) Weakness: Admission and Anticipated Discharge Date Admission Date: June 01, 2021 Subjective Pt sitting in his bed, and on numerous visits, was either upright or side lying. He remains on 100% FiO2 on Hi-flow with desaturations periodically, ranging anywhere from 82-88%. Lengthy conversation with patient and numerous conversations with multiple family members. Please see A/P for further details. Review of Systems Review of Systems: [place] System Assessment Scale: Pain: 0/1 Anxiety: 2/3 SOB: 2/3 Nausea: 0/3 Palliative Performance Scale: 20% Physical Exam Constitutional: + frail appearing and cooperative ENMT: Mouth: + dry oral mucous membranes Respiratory: + labored breathing Auscultation: + diminished lung sounds Cardiovascular: Rate/Rhythm: regular rate and regular rhythm Heart Sounds: normal S1 and normal S2 Gastrointestinal (Abdomen): normal bowel sounds, soft, nontender, no hepatosplenomegaly Skin: + pallor Psychiatric: Orientation: alert and oriented x 3 Insight: good insight Judgement: good judgement Results & Data ([facility]) Vital Signs (Past 12 Hours) Vital Signs Temp Pulse Pulse Pulse Resp BP BP 06/05/21 07:10 36.6 C 81 23 165/81 H 06/05/21 05:47 78 78 30 H 06/05/21 03:01 36.1 C L 76 18 122/70 06/05/21 02:30 80 141/58 H 06/05/21 02:29 80 141/58 H 06/05/21 02:03 78 79 29 H 06/05/21 01:54 80 24 108/61 06/04/21 23:29 36.4 C L 76 22 119/76 06/04/21 22:20 73 26 H 06/04/21 22:00 73 Pulse Ox 06/05/21 07:10 94 06/05/21 05:47 90 06/05/21 03:01 92 06/05/21 02:30 06/05/21 02:29 06/05/21 02:03 90 06/05/21 01:54 94 06/04/21 23:29 91 06/04/21 22:20 94 06/04/21 22:00 PG Care Time/CCT Total # of Minutes Spent Total Time Spent with Patient: Total time spent is greater than 50% in coordination of care (as documented) at patient's floor/unit and/or counseling patient: 45 minutes with > 50% of that time spent assessing the patient, discussing overall goals with family, addressing symptom management, and collaborating with IDT. Coding Level of Care Code 76025 Subseq Hosp Care Lvl 3 Diagnoses Palliative care encounter Z51.5 Pneumonia due to COVID-19 virus U07.1; J12.82 Hypoxia R09.02 Weakness R53.1 Anxiety F41.9 Time Spent (min) 45
--- NOTE | 2021-06-05 14:43 | Pulmonary Consultation ---
Date of Consultation June 05, 2021 Assessment & Plan (1) Pneumonia due to COVID-19 virus: (2) Respiratory failure: Chronicity: acute Respiratory failure complication: hypoxia Qualified Code(s): J96.01 - Acute respiratory failure with hypoxia (3) Hypoxia: (4) Atrial fibrillation: (5) Pulmonary fibrosis: (6) Weakness: Attending: Dr. Robles Impression: This is an 89-year-old male with a past medical history including hyperlipidemia, hypertension, pulmonary fibrosis, CVA, former tobacco smoker (quit in 1990) atrial fibrillation on chronic anticoagulation, CAD, acute respiratory failure with hypoxia. Patient originally diagnosed with Covid pneumonia on 05/06/2021. Status post endotracheal intubation with mechanical ventilation with reintubation. Transferred to [facility] from [facility] on 05/27/2021. Recommendations: 1. Covid 19 pneumonia: Patient is not a candidate for remdesivir or other treatment modalities for Covid as he has already received these. Currently requiring high flow oxygenation with an FiO2 of 100%. Patient is not a candidate for reintubation or mechanical ventilation per decision making of patient with family members. We will continue supportive care including high flow oxygen and dexamethasone 6 mg IV daily. Prognosis for this patient is poor due to age and comorbidities including pulmonary fibrosis. Palliative care consult is appropriate. 2. Atrial fibrillation: Patient anticoagulated with rivaroxaban. We will continue anticoagulation due to hypercoagulable state secondary to Covid. CTA of the chest performed 06/01/2021 is negative for pulmonary emboli. Continue beta-gricelda and anticoagulation. Focus on rate control for improvement respiratory symptoms. 3. Pulmonary fibrosis: Patient receiving dexamethasone 6 mg IV daily. Continue outpatient follow-up. At this time, unfortunately, there is little that we can offer in addition to treatment being received already. We will continue supportive care and focus on palliation. We will discuss appropriateness of moving off of the Covid unit with infection prevention and control as patient was originally diagnosed 2020. Thank you for including us in the care of this patient. The pulmonary service w ill sign off at this time. Please feel free to reconsult as needed Please refer to Dr. Robles's addendum for further recommendations and corrections. Supervising Physician Co-Signing Physician Notes Seen and examined. EMr reviewed. Discussed with JANICE and agree with AP as noted. Post COVID. No additional interventions available currently for COVID. Pt meeting with palliative care and does not wish additional escalation of care which seems appropriate. Not a candidate for bronchoscopy. If hemoptysis is persistent, may consider stopping anticoagulation based on risk benefit analysis. Doubt underlying infection or atypical CHF. Could consider higher dose of dexamethasone (20 mg daily for 5 days, then 10 mg daily for 5 days) if the patient wanted to be aggressive. Will sign off. History of Present Illness Reason for Consultation: Hypoxia secondary to post Covid viral infection Attending Physician: Benjamin Kate MD History of Present Illness Attending: Dr. Robles This is a 89-year-old male. He lives in the [facility] and was transferred to [facility] From [facility] where he was previously intubated and then reintubated for Covid infection. Patient initially diagnosed with Covid pneumonia 05/07/2021. He was admitted to [facility] 05/11/2021 and sent home on 05/12/2021. He was then readmitted on 05/13/2021. At that time he was treated with remdesivir, dexamethasone, baricitinib and required endotracheal intubation with mechanical ventilation. The patient was extubated on 05/20/2021 and had slow recovery. He was transferred to [facility] on 05/25/2021. After 2 days there, staff noticed pronounced hypoxia and family stated that he was flat in affect and seemed to be more tired. He was transferred to the [facility] ED where he was found to be grossly hypoxic and required 15 L via nonrebreather to maintain saturations in the low 90s. The patient continues to be hypoxic and requires high flow oxygen supplementation and is currently on 55 L/min with an FiO2 of 100%. Patient states that he is short of breath. He has noted use of accessory muscles with breathing. He quickly decompensates with conversation. Patient denies any further fever or chills or sweats. He has no chest pain or tightness. He does have cough with some mucus production but does have difficulty clearing secretions. Per review of notes, patient does not wish to have further endotracheal intubation or mechanical ventilation. Palliative care has been consulted. Allergies Allergy/AdvReac Type Severity Reaction Status Date / Time No Known Allergies Allergy Unverified 06/01/21 09:07 Home Medications Medication Instructions Recorded Confirmed Type Milk of Magnesia 2.4 g PO DAILY PRN 06/01/21 06/01/21 History Potassium Phosphate Sodium 1 packet PO TID 06/01/21 06/01/21 History Phosphate Zinc Sulfate 220mg 220 mg PO DAILY 06/01/21 06/01/21 History acetaminophen 650 mg 650 mg PO Q4H PRN 06/01/21 06/01/21 History tablet,extended release ascorbic acid (vitamin C) 500 mg 500 mg PO DAILY 06/01/21 06/01/21 History tablet aspirin 81 mg capsule 81 mg PO DAILY 06/01/21 06/01/21 History atorvastatin 10 mg tablet 10 mg PO HS 06/01/21 06/01/21 History bisacodyl 10 mg rectal suppository 10 mg [place] DAILY PRN 06/01/21 06/01/21 History brimonidine 0.2 % eye drops 1 drp OPB Q12H 06/01/21 06/01/21 History cholecalciferol (vitamin D3) 25 25 mcg PO DAILY 06/01/21 06/01/21 History mcg (1,000 unit) tablet docusate sodium 100 mg capsule 100 mg PO BID 06/01/21 06/01/21 History (Colace) fluticasone furoate 100 1 inh INHALATION DAILY 06/01/21 06/01/21 History mcg/actuation blister powder for inhalation fluticasone propionate 50 1 spray INTRANASAL DAILY 06/01/21 06/01/21 History mcg/actuation nasal spray,suspension furosemide 20 mg tablet 20 mg PO DAILY 06/01/21 06/01/21 History latanoprost 0.005 % eye drops 1 drp OPB PM 06/01/21 06/01/21 History lidocaine 5 % topical patch 2 patch TOPICAL QAM 06/01/21 06/01/21 History loratadine 10 mg tablet 10 mg PO DAILY 06/01/21 06/01/21 History metoprolol tartrate 25 mg tablet 75 mg PO DAILY 06/01/21 06/01/21 History omega-3 fatty acids 1,000 mg 1,000 mg PO DAILY 06/01/21 06/01/21 History capsule pantoprazole 20 mg tablet,delayed 20 mg PO DAILYBB 06/01/21 06/01/21 History release polyethylene glycol 3350 17 17 g PO QDL PRN 06/01/21 06/01/21 History gram/dose oral powder (Miralax) rivaroxaban 20 mg tablet 20 mg PO QDD 06/01/21 06/01/21 History sacubitril 24 mg-valsartan 26 mg 1 tab PO BID 06/01/21 06/01/21 History tablet (Entresto) sennosides 8.6 mg-docusate sodium 1 tab-cap PO QDL PRN 06/01/21 06/01/21 History 50 mg tablet (Senokot-S) tamsulosin 0.4 mg capsule 0.4 mg PO HS 06/01/21 06/01/21 History timolol 0.5 % eye drops 1 drp OPB BID 06/01/21 06/01/21 History Patient History Medical History Aortic stenosis Atrial fibrillation Diagnosed in Jul 2020 - was on Eliquis initially but recently changed to Xarelto Carotid stenosis Coronary artery disease 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 Former smoker Hyperlipidemia Hypertension Hypoxia Indwelling Ewing catheter present Palliative care encounter Pneumonia due to COVID-19 virus Required intubation 05/18-05/20/21 Pulmonary fibrosis Urinary retention Weakness Surgical History History of aortic valve replacement Social History Smoking Status: Former smoker Cigarettes Per Day: 2 PPD until quit in 1998; Smoking End Date: 1998; Second Hand Exposure: No; Do You Dip or Chew Tobacco: No; Tobacco Cessation Education Requested by Patient: No Hx Alcohol Use: No Hx Substance Use: No Preferred Language: Greenlandic Communication Ability: Effective Insole Lip Turner Required: No Beliefs That Will Affect Care: None marital status: Current Living Situation: Personal Care Facility Current Living Situation Comment: daughter nearby who helps with care needs current occupational status: retired 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 Notable use of accessory muscles for breathing EYES: No icterus, gaze conjugate NOSE: No evidence of epistaxis. High flow nasal cannula is in place MOUTH: No lesions or candidiasis NECK: Supple LUNGS: Bibasilar crackles with upper field rhonchi. Occasional bronchospasm HEART: Irregular, irregular, rate in the 70s ABDOMEN: Soft, NT, ND, BS Present. No pain to palpation EXTREMITIES: No LE edema, pedal pulses intact and equal bilaterally NEURO: A&OX3. Hard of hearing. No other focal deficits identified Results & Data Results & Data ([facility]) Vital Signs (Past 12 Hours) Vital Signs Temp Pulse Pulse Pulse Resp BP BP 06/05/21 11:46 36.5 C 75 28 H 103/61 06/05/21 10:17 76 18 06/05/21 08:00 82 06/05/21 07:10 36.6 C 81 23 165/81 H 06/05/21 05:47 78 78 30 H 06/05/21 03:01 36.1 C L 76 18 122/70 06/05/21 02:30 80 141/58 H Pulse Ox 06/05/21 11:46 90 06/05/21 10:17 91 06/05/21 08:00 06/05/21 07:10 94 06/05/21 05:47 90 06/05/21 03:01 92 06/05/21 02:30 Laboratory Results 06/05/21 02:18 06/05/21 02:18 INR 1.4 (0.9-1.1) H 06/01/21 07:38 Diagnostic Findings Chest X-Ray 06/05/21 01:44 XR chest 1V portable CLINICAL HISTORY: low o2 COMPARISON STUDY: Chest radiograph and chest CT June 01, 2021. FINDINGS: There are median sternotomy wires and prosthetic cardiac valve. Cardiomegaly is again noted. No pneumothorax or pleural effusion is at identified. Extensive bilateral airspace opacities are noted. These are similar to prior chest CT. IMPRESSION: No significant change in extensive bilateral airspace opacities suggestive of pneumonia. ACT 112: Negative or not required by law. Electronically signed by: Lalo Vila M.D. 06/05/2021 6:47 AM PG Care Time/CCT Total # of Minutes Spent Total Time Spent with Patient: Total time spent is greater than 50% in coordinat ion of care (as documented) at patient's floor/unit and/or counseling patient: Coding Level of Care Code 08980 Initial Inpt Care Lvl 3 Diagnoses Pneumonia due to COVID-19 virus U07.1; J12.82 Respiratory failure J96.01 Chronicity: acute Respiratory failure complication: hypoxia Hypoxia R09.02 Atrial fibrillation I48.91 Pulmonary fibrosis J84.10 Weakness R53.1 Time Spent (min) 60
--- NOTE | 2021-06-05 16:17 | Hospitalist Progress Note ---
Date of Service June 05, 2021 Assessment & Plan (1) Respiratory failure: Plan: COVID 19 Pneumonia Acute respiratory failure with hypoxia --CTA:There is no evidence of central pulmonary embolus in the main, lobar, or proximal segmental pulmonary arteries. Multifocal airspace consolidation is consistent with the reported history of a viral pneumonia. Radiographic follow- up to resolution is recommended. Cardiomegaly and trace pleural effusions. Enlarged mediastinal and hilar lymph nodes are likely reactive. -CRP:14.3>8.3 -[employer]fire: Positive for COVID -Continue respiratory support with oxygen, BIPAP/High flow oxygen -Continue Dexamethasone for now Currently on High flow oxygen Poor prognosis Appreciate pulmonology input Appreciate palliative care input Xarelto held overnight given hemoptysis Encourage to prone as able Hemoptysis In setting of Xarelto use associated with cough Xarelto held for now Monitor CBC Consider to resume anticoagulation if no further episodes tomorrow Hematuria Resolved (2) Hypoxia: Plan: As above (3) Pneumonia due to COVID-19 virus: Plan: Vaccinated for COVID-19 with [employer] in September Diagnosis of positive COVID-19 on 05/11/2021 Admitted to [place] 05/11, sent home 05/12. On 05/13, sats at home dropped to mid- 80s so returned to hospital and admitted again. After admission, he was on increasing amounts of oxygen and then was ultimately intubated and transferred to the ICU on 05/18. He was treated for the COVID pneumonia with remdesivir, dexamethasone, and baricitinib. He was also on empiric azithromycin and cefepime. Current management As above (4) Coronary artery disease: Plan: No cardiac symptoms (5) Atrial fibrillation: Plan: Rate is controlled Resume Xarelto as able Continue Metoprolol H/O prior CVA and also clot formation (6) Hypertension: Plan: BP stable continue current meds (7) Hyperlipidemia: Plan: Continue statin (8) Former smoker: Plan: DVT Px: SCDs for now Code Status DNI/DNR Palliative care consulted to address goals of Care Admission and Anticipated Discharge Date Admission Date: June 01, 2021 Subjective Patient is seen and examined bedside Reports having sore throat Subjectively feels slightly better Discussed with patient's family and palliative care Currently on high flow oxygen-40 L with 100% FiO2 Hemoptysis better today Aspirin, anticoagulation held overnight Prognosis remains poor Review of Systems Review of Systems: All systems reviewed & are unremarkable except as noted in Subjective Physical Exam Physical Exam: Physical Exam: Vitals signs as noted above General Appearance: Ill-appearing, no apparent distress Head: normocephalic, Atraumatic Eyes: normal inspection, EOMI Neck: supple, Trachea midline Respiratory/Chest: Decreased breath sounds, Basal crackles Cardiovascular: S1, S2, No murmur Abdomen/GI:Soft, Non tender, Bowel sounds present Extremities/Musculoskeletal:normal inspection, no edema Neurologic/Psych:AAOX3, grossly no focal neurological deficits Skin: normal color, warm Results & Data Results & Data ([facility]) Vital Signs (Past 12 Hours) Vital Signs Temp Pulse Pulse Pulse Resp BP Pulse Ox 06/05/21 15:37 36.6 C 75 18 120/81 93 06/05/21 14:51 75 18 91 06/05/21 11:46 36.5 C 75 28 H 103/61 90 06/05/21 10:17 76 18 91 06/05/21 08:00 82 06/05/21 07:10 36.6 C 81 23 165/81 H 94 06/05/21 05:47 78 78 30 H 90 Laboratory Results Short CBC 06/05/21 Range/Units 02:18 WBC 7.32 (4.8-10.8) K/uL Hgb 10.0 L (14.0-18.0) g/dL Hct 29.8 L (42-52) % Plt Count 329 (130-400) K/uL BMP 06/05/21 02:18 Sodium 134 L Potassium 4.0 Chloride 102 Carbon Dioxide 27 BUN 36 H Creatinine 0.63 Glucose 125 H Calcium 9.1 Liver Function 06/05/21 Range/Units 02:18 Total Bilirubin 1.0 (0.2-1) mg/dl AST 23 (15-37) U/L ALT 16 (12-78) U/L Alkaline Phosphatase 122 H (45-117) U/L Albumin 1.8 L (3.4-5.0) gm/dl (1) Respiratory failure Chronicity: acute Respiratory failure complication: hypoxia Qualified Code(s): J96.01 - Acute respiratory failure with hypoxia
[2021-06-05] MEDS: ATORVASTATIN 10 MG TAB PO SCH (21:26)
[2021-06-05] MEDS: TAMSULOSIN HCL 0.4 MG CAP PO SCH (21:26)
[2021-06-05] MEDS: LATANOPROST 0.005% OP SOLN 2.5 ML BTL OPB SCH (21:29)
[2021-06-05] MEDS ORDERED: XOPENEX/ATROVENT 1.25mg/0.5MG NEB COMBO NEB STA (22:15)
[2021-06-05] MEDS ORDERED: LEVALBUTEROL 1.25MG/0.5ML NEB INH STA (22:23)
[2021-06-05] MEDS ORDERED: IPRATROPIUM BROMIDE NEB SOLN 0.02% 2.5 ML VIAL INH STA (22:23)
[2021-06-05] MEDS ORDERED: methylPREDNISolone 40 MG in SYRINGE 0 ML IV ONE (22:30)
[2021-06-05] MEDS ORDERED: MoRPHine SULFATE 4 MG/ML 1 ML CARP\\VIAL IV STA (23:31)
--- NOTE | 2021-06-05 23:32 | Communication Note ---
Date of Service: June 05, 2021 Persistent hypoxemia/respiratory distress despite BiPAP as per RN. Patient feels like he is suffocating. No change in clinical status after Solu-Medrol and neb treatment. Patient requesting to transition to comfort care after discussion at bedside. Patient family updated of developments.
[2021-06-05] MEDS ORDERED: LORazepam 1 MG/2 ML VIAL IV PRN (23:44)
[2021-06-06] MEDS: MoRPHine SULFATE 4 MG/ML 1 ML CARP\\VIAL IV PRN ×6 (00:32→05:15)
--- NOTE | 2021-06-06 07:31 | Discharge Summary ---
Date of Service June 06, 2021 Admission HPI Per Admitting Provider This is an 89 y/o male with recent admission for respiratory failure and COVID and a PMH of aortic stenosis, prior AVR, CAD, HTN, atrial fibrillation, dyslipidemia, former smoker, ? 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 Of note, pt was vaccinated for COVID with [employer] in Sep. History obtained from pt, his daughter (a nurse), and available records. Pt was diagnosed with COVID week of 05/07 - initially just fatigued but progressively worsened at home. Admitted to [place] 05/11, sent home 05/12. On 05/13, sats at home dropped to mid-80s so returned to hospital and admitted again. After admission, he was on increasing amounts of oxygen and then was ultimately intubated and transferred to the ICU on 05/18. He was treated for the COVID pneumonia with remdesivir, dexamethasone, and baricitinib. He was also on empiric azithromycin and cefepime. He did have some issues with ICU delirium. On 05/20 he was extubated and subsequently transferred to the floor. Initially, he seemed to be improving, but on 05/25 when he was supposed to be discharge to rehab he developed increased confusion, leukocytosis, and increased O2 requirement. He had blood/urine/sputum cultures collected, which were apparently all negative. He was started on empiric Zosyn. His family noted that he seemed to be getting weaker after transfer out of ICU, not stronger, so transfer to rehab was ultimately recommended. He was discharged to [facility] on 05/28 in the evening - on 3 liters of O2, antibiotics changed to Au gment at discharge. Apparently, he seemed to do okay for the first two days at rehab, but yesterday, his family noticed that he seemed more tired and flat then he had been. He told them that "I'm not feeling good" but could not localize symptoms. His O2 requirements have been stable until today. Since last night, the staff at [facility] reported intermittent hemoptysis, especially with using incentive spirometer. He also developed a fever last night of 100.9F. This morning, he was noted to be markedly hypoxic so EMS was called. In the ED, he has required 15 L of O2 via NRB to maintain sats in mid to low 90s. He reports feeling better than upon arrival but notes that he gets short of breath with speaking more than 2-3 words. Admission Exam Per Admitting Provider Physical Exam Constitutional: + ill appearing and + obese; no acute distress Eyes: + anicteric sclerae Neck: trachea midline Respiratory: + labored breathing (with conversational dyspnea), + cough and + tachypneic Auscultation: + diminished lung sounds and + crackles (at bases); no wheezes Cardiovascular: Rate/Rhythm: + tachycardic and + irregularly irregular Heart Sounds: + murmur Vessels: radial pulses present Extremities: + pedal edema; no calf tenderness Gastrointestinal (Abdomen): Inspection/Auscultation: normal bowel sounds; abdomen not distended Percussion/Palpation: abdomen soft; abdomen nontender Musculoskeletal: Head/Neck/Chest: normocephalic, head atraumatic and neck supple Skin: no jaundice Neurologic: moves all extremities and awake; not confused Psychiatric: Orientation: oriented x 3 Genitourinary: Ewing catheter in place with gross hematuria Principal Diagnosis COVID 19 Pneumonia Acute respiratory failure with hypoxia Hypertension Hyperlipidemia Coronary artery disease Discharge Data Allergies Allergy/AdvReac Type Severity Reaction Status Date / Time No Known Allergies Allergy Unverified 06/01/21 09:07 Consultations 06/01/21 09:13 ED Decision to Admit Stat 06/01/21 16:14 Consult Palliative Care Routine 06/05/21 10:52 Consult Pulmonology Routine Ordered Studies 06/01/21 10:44 CT angio chest PE protocol Stat Hospital Course (1) Respiratory failure: COVID 19 Pneumonia Acute respiratory failure with hypoxia --CTA:There is no evidence of central pulmonary embolus in the main, lobar, or proximal segmental pulmonary arteries. Multifocal airspace consolidation is consistent with the reported history of a viral pneumonia. Radiographic follow- up to resolution is recommended. Cardiomegaly and trace pleural effusions. Enlarged mediastinal and hilar lymph nodes are likely reactive. -CRP:14.3>8.3 -[employer]: Positive for COVID -Continue respiratory support with oxygen, BIPAP/High flow oxygen -Continue Dexamethasone for now Currently on High flow oxygen Poor prognosis Appreciate pulmonology input Appreciate palliative care input Xarelto held overnight given hemoptysis Encourage to prone as able Hemoptysis In setting of Xarelto use associated with cough Xarelto held for now Monitor CBC Consider to resume anticoagulation if no further episodes tomorrow Hematuria Resolved (2) Hypoxia: As above (3) Pneumonia due to COVID-19 virus: Vaccinated for COVID-19 with [employer] in September Diagnosis of positive COVID-19 on 05/11/2021 Admitted to [facility] 05/11, sent home 05/12. On 05/13, sats at home dropped to mid- 80s so returned to hospital and admitted again. After admission, he was on increasing amounts of oxygen and then was ultimately intubated and transferred to the ICU on 05/18. He was treated for the COVID pneumonia with remdesivir, dexamethasone, and baricitinib. He was also on empiric azithromycin and cefepime. Current management As above (4) Coronary artery disease: No cardiac symptoms (5) Atrial fibrillation: Rate is controlled Resume Xarelto as able Continue Metoprolol H/O prior CVA and also clot formation (6) Hypertension: BP stable continue current meds (7) Hyperlipidemia: Continue statin (8) Former smoker: DVT Px: SCDs for now Code Status DNI/DNR Palliative care consulted to address goals of Care Patient deteriorated overnight. Patient had persistent hypoxia, respiratory distress despite being on BiPAP overnight and feels he was suffocating as per records. Patient requested to be transition to comfort care as per the night hospitalist. He was pronounced to be on 06/06/21 at 0518. Family was updated by Hospitalist satellite installation technician. Total Time Total Time Spent Total Time Spent (In Minutes): 35 minutes Discharge Plan Discharge Items Patient Disposition: Other Date/Time: 06/06/21 05:18
== END 2021-06-06 06:30 | disposition expired | DRG 177 ==
LOC: ED 07:24 → SUATTDRO 12:08 → 2E 12:08